=== PATIENT | female | born 1960 | race Caucasian/White ===

== ENCOUNTER 2016-04-06 11:17 | Emergency (ER) | payer BC, MEDICAID ==
[~2016-04-06] VITALS: Ht 160 cm; Wt 71.5 kg
[~2016-04-06 11:17] MED LIST: ALBU8.5H3; IPRA14.76; MTF1000T PO; XOP15INH IH; [UNRECOGNIZED DRUG - CODE] PO
[2016-04-06 11:29] VITALS: Ht 160 cm; Wt 71.5 kg
[2016-04-06] MEDS ORDERED: IBUPROFEN 800 MG TAB PO ONE (12:00)
[2016-04-06] MEDS ORDERED: DIAZEPAM 5 MG/ML SYG IM ONE (13:00)
--- NOTE | 2016-04-06 13:11 | RADRPT ---
PROCEDURE: Chest 2 views. CLINICAL INDICATION: Left chest pain. TECHNIQUE: PA and lateral views of the chest were obtained. COMPARISON: June 03, 2013 FINDINGS: The cardiomediastinal silhouette is within normal limits. No consolidations are identified. No pne umothorax is seen. Osseous structures appear intact. No gross destructive bony lesions are observ ed. IMPRESSION: No visualized active disease. If further characterization of the left ribs is needed a dedicated left rib series or CT is recommen ded. RPTAT: AA .Dallas Silva MD, MD Date Time Electronically viewed and signed by .Dallas Silva MD, on 04/06/2016 13:11 .P/
[2016-04-06] MEDS ORDERED: DIAZ-90 PO (13:21)
--- NOTE | 2016-04-06 13:21 | ERD ---
ER Documentation Chief Complaint Date/Time DATE: 04/06/16 TIME: 13:18 Chief Complaint injured chest wall moving furniture and now has pain taking a deep breath HPI This is a 55-year-old female who presents to the emergency room for evaluation of left sided chest pain. She states that she was moving furniture and felt a pop in her left chest. The patient states that she is having pain with deep inspiration and movement of her left arm. The patient came to the ER today for evaluation. ROS All systems reviewed and are negative except as per history of present illness. Medications Home Meds Reported Medications Metformin* (Glucophage*) 1,000 Mg Tablet, 1000 MG PO DAILY 06/04/13 Glyburide* (Glyburide*) 1.25 Mg Tablet, 5 MG PO BID 06/04/13 Levalbuterol* (Xopenex* HFA) 15 Gm Inha, 15 GM IH q 4 hrs prn 06/03/13 Albuterol/Ipratropium (Combivent) 14.7 Gm Inha 10/15/11 Albuterol Sulfate* (Proair HFA*) 8.5 Gm Hfa.aer.ad 10/15/11 Allergies Allergies: Coded Allergies: No Known Allergies (Verified Allergy, 06/03/13) PMhx/Soc History of Surgery: Yes (GALLBLADDER REMOVED 10 YEARS AGO) Anesthesia Reaction: No (NAUSEA) Hx Neurological Disorder: No Hx Respiratory Disorders: Yes (ASTHMA) Hx Cardiac Disorders: No Hx Psychiatric Problems: No Hx Miscellaneous Medical Probl: Yes (DM2, ASTHMA) Hx Alcohol Use: No Hx Substance Use: No Hx Tobacco Use: No Smoking Status: Never smoker Physical Exam Vitals Vital Signs Date Time Temp Pulse Resp B/P Pulse Ox O2 Delivery O2 Flow Rate FiO2 04/06/16 11:29 99.0 78 18 133/65 97 Physical Exam INITIAL VITAL SIGNS: Reviewed by me GENERAL: The patient is well developed and appropriate for usual state of health in no apparent distress HEENT: Pupils equal, round, and reactive to light. EOMI. There is no scleral icterus. NECK: C-spine is soft and supple, there is no meningismus. There is no cervical lymphadenopathy. LUNGS: Clear to auscultation bilaterally. There are no rales, wheezes or rhonchi. HEART: Regular rate and rhythm, no murmurs, clicks, rubs or gallops. ABDOMEN: Soft, non-tender, non-distended. There are bowel sounds in all four quadrants. No rebound or guarding. EXTREMITIES: There is no peripheral cyanosis or edema. No focal swelling or erythema. NEUROLOGICAL: The patient moves all four extremities with 5/5 strength. Cranial nerves II - XII are intact. Normal gait. Alert and oriented SKIN: There is no apparent rash or petechiae. Musculoskeletal: Left-sided chest wall tenderness to palpation, no paradoxical chest wall movement HEME/LYMPHATIC: There is no evidence of excessive bruising or lymphedema. PSYCHIATRIC: The patient does not appear anxious or depressed. Results 24 hrs Current Medications Medications (Trade) Dose Ordered Sig/Jose Elias Route PRN Reason Start Time Stop Time Status Last Admin Dose Admin Ibuprofen (Motrin) 800 mg ONCE ONCE PO 04/06/16 12:00 04/06/16 12:01 DC 04/06/16 11:59 Diazepam (Valium) 5 mg ONCE ONCE IM 04/06/16 13:00 04/06/16 13:01 DC Procedures/MDM EKG: Rate/Rhythm: [Normal Sinus Rhythm] QRS, ST, T-waves: [No changes consistent w/ acute ischemia] Impression: [No evidence of ischemia or arrhythmia] Chest X-ray 2V Interpreted by me: Soft Tissue: No acute abnormalities Bones: No acute abnormalities Mediastinum/Cardiac Silhouette/Lungs: [No acute abnormalities] This 55-year-old female presents to the ER for evaluation of left-sided chest pain. The patient did have tenderness to palpation on the left lateral chest wall, this occurred after moving heavy furniture. I feel that her symptoms are muscular in nature given the history and physical exam. EKG is nonischemic, chest x-ray does not show any signs of rib fractures. She is not hypoxic, no paradoxical chest wall movement. This patient will be discharged at this time with a prescription for Motrin, and Valium to take at nighttime only. Departure Diagnosis: Primary Impression: Chest wall muscle strain Condition: Stable MAJOR SANTIAGO DO Apr 06, 2016 13:21
[2016-04-06] MEDS ORDERED: IBUP800T25 PO (13:22)
[2016-04-06] MEDS ORDERED: GLIP5TAB13 PO (13:53)
[2016-04-06] MEDS ORDERED: ADV25050 INHALATION (13:54)
[2016-04-06] MEDS ORDERED: SITA100T8 PO (13:54)
[2016-04-06 14:18] VITALS: BP 118/69; PULSE 68; RESP 18; TEMP 98.1
== END 2016-04-06 14:19 | disposition home or self-care (01) ==
LOC: E/R 11:17
DX: S29.011A Strain of muscle and tendon of front wall of thorax, initial encounter (principal); J45.909 Unspecified asthma, uncomplicated; E11.9 Type 2 diabetes mellitus without complications; X50.1XXA Overexertion from prolonged static or awkward postures, initial encounter; Y92.9 Unspecified place or not applicable; Z79.84 Long term (current) use of oral hypoglycemic drugs
CPT/HCPCS: 71020; 96372; 99284; J3360; 93005

== ENCOUNTER 2017-04-22 17:09 | Inpatient (IN) | END 2017-04-27 14:30 | disposition home or self-care (01) | DRG 203 ==

== ENCOUNTER 2018-03-27 16:17 | Inpatient (IN) | payer BC ==
[~2018-03-27] VITALS: Ht 162.6 cm; Wt 63.3 kg
[~2018-03-27 16:17] MED LIST changes: +ADV25050 INHALATION; +ALBU2.5V3 NEB; -ALBU8.5H3; +ALBU8.5H8 INH; +GLIP5TAB13 PO; -IPRA14.76; +METF100010 PO; -MTF1000T PO; +PRED50TA PO; -XOP15INH IH; -[UNRECOGNIZED DRUG - CODE] PO
--- NOTE | 2018-03-27 16:41 | ERD ---
ER Documentation Chief Complaint Chief Complaint SOB X 1 month, Asthma exascerbation X 1 day HPI 57-year-old female with a history of diabetes mellitus type 2 and asthma, last admission was April 2017 but never intubated, presents to the ED complaining of several week history of shortness of breath which has been worsening over the last week and become severe since yesterday. Nonproductive cough but no hemoptysis. Denies chest pain or palpitations. No abdominal pain, nausea vomiting. No URI symptoms, rhinorrhea or odynophagia. No leg pain or swelling. No fevers or chills. ROS All systems reviewed and are negative except as per history of present illness. Medications Home Meds Active Scripts Prednisone* (Prednisone*) 10 Mg Tab, 10 MG PO DAILY for 11 Days, #26 TAB 40mg for 2 days then 30mg for 3 days then 20mg for 3 days then 10mg for 3 days then stop Prov:CAROLA NICHOLE MD 03/31/18 Guaifenesin (Guaifenesin) 600 Mg Tablet.sa, 600 MG PO BID PRN for COUGH for 7 Days, #14 TAB Prov:CAROLA NICHOLE MD 03/31/18 Azithromycin* (Azithromycin*) 250 Mg Tablet, 250 MG PO DAILY for 2 Days, #2 TAB Prov:CAROLA NICHOLE MD 03/31/18 Reported Medications Albuterol Sulfate* (Proair HFA*) 8.5 Gm Hfa.aer.ad, 2 PUFF INH Q4H PRN for WHEEZING AND SOB, #1 INHALER 03/27/18 Salmeterol Xinaf/Fluticasone* (Advair*) 250-50 Diskus Inhaler, 1 INH INHALATION BID, #1 INHALER 03/27/18 Glipizide* (Glipizide*) 10 Mg Tablet, 10 MG PO AC BREAKFAST DINNER, TAB 03/27/18 Metformin Hcl* (Metformin Hcl*) 1,000 Mg Tablet, 1000 MG PO WITH BREAKFAST DINNE, #60 TAB 03/27/18 Discontinued Reported Medications Albuterol Sulfate* (Proair HFA*) 8.5 Gm Hfa.aer.ad, 2 PUFF INH Q6H PRN for WHEEZING AND SOB, #1 INHALER 04/22/17 Salmeterol Xinaf/Fluticasone* (Advair*) 250-50 Diskus Inhaler, 1 INH INHALATION BID, #1 INHALER 04/22/17 Metformin Hcl* (Metformin Hcl*) 1,000 Mg Tablet, 1000 MG PO WITH BREAKFAST DINNE, #60 TAB 04/22/17 Glipizide* (Glipizide*) 5 Mg Tablet, 5 MG PO AC BREAKFAST DINNER, TAB 04/22/17 Discontinued Scripts Prednisone* (Prednisone*) 50 Mg Tablet, 50 MG PO DAILY for 4 Days, #4 TAB Prov:REZA TILLEY MD 04/26/17 Albuterol Sulfate* (Albuterol Sulfate* Neb) 0.083%-3 Ml Neb, 1.25 MG NEB Q3H PRN for WHEEZING AND SOB, #30 VIAL Prov:REZA TILLEY MD 04/26/17 Allergies Allergies: Coded Allergies: No Known Allergies (Verified Allergy, Unknown, 03/27/18) PMhx/Soc Viewed in chart. As per HPI. History of Surgery: Yes (Gallbladder removal) Anesthesia Reaction: No Hx Neurological Disorder: No Hx Respiratory Disorders: Yes (asthma, ) Hx Cardiac Disorders: No Hx Psychiatric Problems: No Hx Miscellaneous Medical Probl: Yes (Diabetes) Hx Alcohol Use: No Hx Substance Use: No Hx Tobacco Use: No FmHx No sudden or cancer. No family history relevant to presenting complaint. Physical Exam Vitals Temperature: 99.1. Pulse: 113. Respirations: 18. Blood pressure: 134/82. O2 saturation: 92% on room air. Physical Exam Const: No acute distress Head: Atraumatic Eyes: Normal Conjunctiva ENT: Normal External Ears, Nose and Mouth. Neck: Full range of motion. No meningismus. Resp: Clear to auscultation bilaterally Cardio: Regular rate and rhythm, no murmurs Abd: Soft, non tender, non distended. Normal bowel sounds Skin: No petechiae or rashes Back: No midline or flank tenderness Ext: No cyanosis, or edema Neur: Awake and alert Psych: Normal Mood and Affect Result Diagram: 03/31/18 0452 Results 24 hrs Laboratory Tests Test 03/27/18 16:50 03/27/18 21:08 White Blood Count 8.3 10^3/ul Red Blood Count 5.04 10^6/ul Hemoglobin 12.9 g/dl Hematocrit 39.1 % Mean Corpuscular Volume 77.6 fl Mean Corpuscular Hemoglobin 25.6 pg Mean Corpuscular Hemoglobin Concent 33.0 g/dl Red Cell Distribution Width 13.1 % Platelet Count 267 10^3/UL Mean Platelet Volume 9.8 fl Immature Granulocytes % 0.100 % Neutrophils % % Segmented Neutrophils % (Manual) 62 % Lymphocytes % % Lymphocytes % (Manual) 17 % Monocytes % % Monocytes % (Manual) 4 % Eosinophils % % Eosinophils % (Manual) 16 % Basophils % % Basophils % (Manual) 1 % Nucleated Red Blood Cells % 0.0 /100WBC Immature Granulocytes # 0.010 10^3/ul Neutrophils # 10^3/ul Lymphocytes (Manual) 1.4 10^3/ul Lymphocytes # 10^3/ul Monocytes # 10^3/ul Monocytes # (Manual) 0.3 10^3/ul Eosinophils # 10^3/ul Basophils # 10^3/ul Basophils # (Manual) 0.0 10^3/ul Nucleated Red Blood Cells # 10^3/ul Platelet Estimate NORMAL Poikilocytosis 1+ Anisocytosis 1+ Microcytosis 1+ Sodium Level 134 mmol/L Potassium Level 4.6 mmol/L Chloride Level 97 mmol/L Carbon Dioxide Level 22 mmol/L Anion Gap 15 Blood Urea Nitrogen 10 mg/dl Creatinine 0.72 mg/dl Est Glomerular Filtrat Rate mL/min > 60 mL/min Glucose Level 424 mg/dl Calcium Level 9.7 mg/dl Troponin I < 0.012 ng/ml Bedside Glucose 359 mg/dL Current Medications Medications Dose Sig/Jose Elias Start Time Status Last (Trade) Ordered Route PRN Stop Time Admin Dose Reason Admin Albuterol 15 mg ONCE STAT 03/27/18 DC 03/27/18 (Proventil INH 16:43 16:58 0.5% (Neb)) 03/27/18 16:45 Ipratropium 1 mg ONCE STAT 03/27/18 DC 03/27/18 Kountze INH 16:43 16:58 (Atrovent 03/27/18 0.02% 16:45 (Neb)) 125 mg ONCE STAT 03/27/18 DC 03/27/18 Methylprednis IV 16:43 16:58 olone Sodium 03/27/18 Succinate 16:45 (Solu-Medrol) Sodium 1,000 ml @ Q1H ONCE 03/27/18 DC 03/27/18 Chloride 1,000 mls/hr IV 18:30 18:44 03/27/18 19:29 Albuterol 15 mg ONCE STAT 03/27/18 DC 03/27/18 (Proventil INH 18:50 18:59 0.5% (Neb)) 03/27/18 18:52 Insulin 8 unit ONCE STAT 03/27/18 DC 03/27/18 Human IV 21:15 21:51 Regular 03/27/18 (Novolin-R) 21:17 Procedures/MDM DOCUMENTS REVIEWED: ED nurse, our ED, prior records EKG: Time: 17:37. Sinus tachycardia. Ventricular rate 102. Normal AK and QRS. No acute ST segment elevation or depression. No ectopy. My Interpretation IMAGING: Chest PA lateral. Cardiac silhouette is normal. The costophrenic angles are clear. No effusions or infiltrates. REEXAMINATION/REEVALUATION: Time: 1849. With decreased breath sounds shortness of breath and wheezing. Patient would like to try one more nebulized albuterol treatment prior to agreeing to admission. Time: 2057. Breath sounds diminished with expiratory wheezing. Still short of breath. CRITICAL CARE TIME: Due to the high probability of sudden clinically significant respiratory deterioration, this patient with acute asthma exacerbation with hypoxia required multiple, frequent reevaluations of vital signs and response to therapy. Additional critical care time was spent in reviewing prior medical records, interpretation of relevant clinical data including labs, x-ray, EKG and arranging for admission and ongoing care. TOTAL CRITICAL CARE TIME: 35 minutes not including other separately reportable procedures. MEDICAL DECISION MAKIN-year-old female presents to the ED complaining of 1 day history of increasing shortness of breath and wheezing. CBC unremarkable for leukocytosis or anemia. Chemistry reveals significant hyperglycemia and hyponatremia but no renal insufficiency or electrolyte abnormalities. EKG reveals sinus tachycardia but no ischemic changes or ectopy. Chest x-ray unremarkable for pneumonia, pneumothorax, effusion or infiltrates. Patient treated aggressively with nebulized albuterol, Atrovent and intravenous corticosteroids. Observed in the ED for over 4 hours but continues to be symptomatic with shortness of breath, significant bronchospasm with decreased breath sounds, expiratory wheezing and hypoxia. Diabetes mellitus out of control but no DKA or HHS likely exacerbated by steroids. Admit to [facility] for further evaluation and management. PATIENT CARE TRANSITIONED: Time: 2112Dr. Ghotra. Counseled patient regarding diagnosis, diagnostic results and plan for admission. Departure Diagnosis: Primary Impression: Shortness of breath Additional Impressions: Acute asthma exacerbation Asthma severity: severe Asthma persistence: persistent Qualified Codes: J45.51 - Severe persistent asthma with (acute) exacerbation Diabetes mellitus out of control Diabetes mellitus type: type 2 Glycemic state: with hyperglycemia Qualified Codes: E11.65 - Type 2 diabetes mellitus with hyperglycemia Condition: Serious THELMA WRIGHT MD Mar 27, 2018 16:41
[2018-03-27] MEDS ORDERED: ALBUTEROL 0.5% (NEB) 2.5 MG/0.5 ML AMP INH STA ×2 (16:43→18:50)
[2018-03-27] MEDS ORDERED: IPRATROPIUM (NEB) 0.5 MG/2.5 ML AMP INH STA (16:43)
[2018-03-27] MEDS ORDERED: METHYLPREDNISOLONE 125 MG INJ IV STA (16:43)
[2018-03-27] MEDS ORDERED: METF100010 PO (17:35)
[2018-03-27] MEDS ORDERED: GLIP10TA14 PO (17:35)
[2018-03-27] MEDS ORDERED: ADV25050 INHALATION (17:36)
[2018-03-27] MEDS ORDERED: ALBU8.5H8 INH (17:36)
[2018-03-27] MEDS ORDERED: SOD CHLORIDE 0.9% 1,000 ML IV ONE (18:30)
[2018-03-27] MEDS ORDERED: INSULIN REGULAR 10 ML INJ IV STA (21:15)
[2018-03-27] MEDS ORDERED: ONDANSETRON 4 MG INJ IV PRN ×2 (21:30→22:00)
[2018-03-27] MEDS ORDERED: ACETAMINOPHEN 325 MG TAB PO PRN ×2 (21:30→22:00)
[2018-03-27] MEDS ORDERED: NACL 0.9% 3 ML SYG IV SCH (22:00)
[2018-03-27] MEDS ORDERED: INSULIN GLARGINE [LANTus] (100 UNITS/ML) SYG SC ONE (22:00)
[2018-03-27] MEDS ORDERED: ALBUTEROL 0.083% (NEB) 2.5 MG/3 ML AMP HHN PRN (22:00)
--- NOTE | 2018-03-27 22:09 | HP ---
Date/Time of Note Date/Time of Note DATE: 03/27/18 TIME: 22:09 Assessment/Plan VTE Prophylaxis SCD applied (from Nsg): Yes Pharmacological prophylaxis: NA/contraindicated Pharm contraindication: low risk/ambulating Assessment/Plan Hospital Course This is a 57-year-old female being admitted to the [facility] floor for: #1 acute asthma exacerbation: Patient did receive a loading dose of Solu-Medrol in the ED at the current time we will continue Solu-Medrol 30 mg IV every 12, scheduled nebulizers, Protonix daily. Chest x-ray at the current time is clear. No indication for antibiotics at the current time. #2 diabetes mellitus: We will check a hemoglobin A1c. Will hold p.o. sulfonylurea and metformin, give the patient Lantus 10 units. Insulin sliding scale. Monitor blood sugars. Lipid panel, TSH. May need additional insulin administration with steroids if becomes hyperglycemic, will monitor. #3 DVT GI prophylaxis: SCDs, Protonix Further treatment strategy will be implemented as per the clinical course. Result Diagram: 03/27/18 1650 03/27/18 1650 Results 24hrs Laboratory Tests Test 03/27/18 16:50 03/27/18 21:08 03/27/18 21:55 White Blood Count 8.3 # Red Blood Count 5.04 Hemoglobin 12.9 Hematocrit 39.1 Mean Corpuscular Volume 77.6 L Mean Corpuscular Hemoglobin 25.6 L Mean Corpuscular 33.0 Hemoglobin Concent Red Cell Distribution Width 13.1 Platelet Count 267 Mean Platelet Volume 9.8 Immature Granulocytes % 0.100 Neutrophils % Segmented Neutrophils % (Manual) 62 Lymphocytes % Lymphocytes % (Manual) 17 Monocytes % Monocytes % (Manual) 4 Eosinophils % Eosinophils % (Manual) 16 H Basophils % Basophils % (Manual) 1 Nucleated Red Blood Cells % 0.0 Immature Granulocytes # 0.010 Neutrophils # Lymphocytes (Manual) 1.4 Lymphocytes # Monocytes # Monocytes # (Manual) 0.3 Eosinophils # Basophils # Basophils # (Manual) 0.0 Nucleated Red Blood Cells # Platelet Estimate NORMAL Poikilocytosis 1+ Anisocytosis 1+ Microcytosis 1+ Sodium Level 134 L Potassium Level 4.6 Chloride Level 97 Carbon Dioxide Level 22 Anion Gap 15 H Blood Urea Nitrogen 10 Creatinine 0.72 Est Glomerular Filtrat > 60 Rate mL/min Glucose Level 424 *H Calcium Level 9.7 Troponin I < 0.012 Bedside Glucose 359 H 355 H HPI/ROS Admit Date/Time Admit Date/Time Mar 27, 2018 at 21:17 Hx of Present Illness Chief complaint: Wheezing times 1 day, shortness of breath times 1 month 57-year-old female with a history of diabetes mellitus type 2 and asthma, last admission was April 2017 but never intubated, presents to the ED complaining of several week history of shortness of breath which has been worsening over the last week and become severe since yesterday. She reports that she was seen by her primary care doctor approximately 3 times and was given antibiotics for possible pneumonia as well as steroids and nebulization. Nonproductive cough but no hemoptysis. Denies chest pain or palpitations. No abdominal pain, nausea vomiting. No URI symptoms, rhinorrhea or odynophagia. No leg pain or swelling. No fevers or chills. Allergies: NKDA Medications: See YOLANDA SALINAS Const: As per HPI Eyes : No pain discharge or redness or change in visual acuity ENT: No pain, sore throat, congestion, congestion, dysphagia or discharge Respiratory: As per HPI Cardiovascular: No chest pain, palpitation, PND, or edema GI : no change in appetite, abdominal pain, nausea, vomiting, diarrhea, constipation, or change in the color his stool Genitourinary: No dysuria, hematuria, flank pain , discharge or CVA tenderness Musculoskeletal: No joint pain, back pain, neck pain, restricted range of motion in neck or joints Skin: No rash, bruising or hives Neuro: No headache, dizziness, syncope, seizure, focal weakness Endocrine: No polyuria, polydipsia, temperature intolerance Psych: No hallucination, depression, anxiety or suicidal ideation PMH/Family/Social Past Medical History Diabetes mellitus, asthma Medications Current Medications Ondansetron HCl (Zofran Inj) 4 mg BRIDGE ORDER PRN IV NAUSEA AND/OR VOMITING; Start 03/27/18 at 21:30; Stop 03/28/18 at 21:29 Acetaminophen (Tylenol Tab) 650 mg ER BRIDGE PRN PO MILD PAIN(1-3)OR ELEVATED TEMP; Start 03/27/18 at 21:30; Stop 03/28/18 at 21:29 IV Flush (NS 3 ml) 3 ml PER PROTOCOL IV ; Start 03/27/18 at 22:00; Status UNV Ondansetron HCl (Zofran Inj) 4 mg Q6H PRN IV NAUSEA AND/OR VOMITING; Start 03/27/18 at 22:00; Status UNV Acetaminophen (Tylenol Tab) 650 mg Q6H PRN PO PAIN LEVEL 1-3 OR FEVER; Start 03/27/18 at 22:00; Status UNV Heparin Sodium (Porcine) (Heparin (5000 Units/1ml)) 5,000 unit Q8 SC ; Start 03/27/18 at 22:00; Status UNV Albuterol (Proventil 0.083% (Neb)) 2.5 mg Q4H RESP THERAPY HHN ; Start 03/28/18 at 01:00; Status UNV Albuterol (Proventil 0.083% (Neb)) 1.25 mg Q2H RESP THERAPY PRN HHN SHORTNESS OF BREATH; Start 03/27/18 at 22:00; Status UNV Prednisone (Prednisone) 40 mg DAILY PO ; Start 03/28/18 at 09:00; Status UNV Insulin Glargine (Lantus) 10 units ONCE ONCE SC ; Start 03/27/18 at 22:00; Stop 03/27/18 at 22:01; Status UNV Miscellaneous Information (* Miscellaneous Pharmacy Order) Discontinue current oral sulfonylur... ONCE ONCE XX ; Start 03/27/18 at 22:00; Stop 03/27/18 at 22:01; Status UNV Diagnostic Test (Pha) (Accu-Chek) 1 ea 02 XX ; Start 03/28/18 at 02:00; Status UNV Miscellaneous Information (* Miscellaneous Pharmacy Order) HYPOGLYCEMIA PROTOCOL w... ONCE ONCE XX ; Start 03/27/18 at 22:00; Stop 03/27/18 at 22:01; Status UNV Insulin Aspart (Novolog Insulin Pen) NOVOLOG *MILD* ALGORITHM WITH MEALS BEDTIME SC ; Start 03/28/18 at 08:00; Status UNV Miscellaneous Information (* Miscellaneous Pharmacy Order) Discontinue all previ... ONCE ONCE XX ; Start 03/27/18 at 22:00; Stop 03/27/18 at 22:01; Status UNV Miscellaneous Information 1 inh BID INHALATION ; Start 03/28/18 at 09:00; Status UNV Coded Allergies: No Known Allergies (Verified Allergy, Unknown, 03/27/18) Past Surgical History Past Surgical Hx: cholecystectomy Family History Significant Family History: no pertinent family hx Social History Alcohol Use: none Smoking Status: Never smoker Drug Use: none Exam/Review of Systems Vital Signs Vitals Vital Signs Date Temp Pulse Resp B/P (MAP) Pulse Ox O2 O2 Flow FiO2 Time Delivery Rate 03/27/18 111 19 122/76 97 Nasal 21:52 (91) Cannula 03/27/18 21 18:55 03/27/18 99.1 16:25 Exam Exam General: Patient is a pleasant female currently lying in bed in no acute distress HEENT: Atraumatic, normocephalic. The pupils are equal, round and reactive. Extraocular motor are intact Neck: Supple with full range of motion. No rigidity or meningismus Chest: Nontender Lungs: Inspiratory and expiratory wheezing on examination, nonlabored breathing, coarse breath sounds bilaterally Heart: Sinus tachycardia Abdomen: Soft , nontender, nondistended , bowel sounds are present. No guarding no rebound tenderness , No masses or organomegaly. No costovertebral temporal angle mass Extremities: Normal to inspection, no edema no cyanosis Neurologic: Normal mental status, speech normal, cranial nerves II through XII are intact, motor and sensory are intact, no focal weakness Additional Comments PROCEDURE: XR Chest. CLINICAL INDICATION: chest pain TECHNIQUE: Single frontal view of the chest was obtained COMPARISON: 04/06/16 FINDINGS: The heart and mediastinum are within normal limits. The lungs are clear. There is no pleural effusion or pneumothorax. RPTAT: AA IMPRESSION: No acute disease. .Anthony Borrego MD, Date Time Electronically viewed and signed by .Anthony Borrego MD, MD on 03/27/2018 17:05 .S/ CC: THELMA WRIGHT MD [id number] BERNARDO MCWILLIAMS Mar 27, 2018 22:09
[2018-03-27 22:14] VITALS: BP 131/63; PULSE 116; RESP 18
[2018-03-27 22:30] VITALS: Ht 162.6 cm; Wt 63.3 kg
[2018-03-27] MEDS: HEPARIN 5,000 UNIT/1 ML VIAL SC SCH (23:10)
[2018-03-28 02:00] VITALS: BP 135/67; PULSE 108; RESP 18
[2018-03-28] MEDS: ACCU-CHEK XX SCH (02:00)
[2018-03-28] MEDS: ALBUTEROL 0.083% (NEB) 2.5 MG/3 ML AMP HHN SCH ×2 (02:18→05:31)
[2018-03-28] MEDS ORDERED: INSULIN ASPART [NOVOLOG] 3 ML PEN SC ONE (02:30)
[2018-03-28] MEDS: HEPARIN 5,000 UNIT/1 ML VIAL SC SCH (05:46)
--- NOTE | 2018-03-28 06:34 | NUR ---
Pt alert and oriented. No complaint of pain. Pt arrived on the unit on 2L of O2. BS checked. BS was [address] Ghotra. BS was rechecked and it was 343. Dr Ghotra was notified, received orders. BS rechecked and it was 257. All needs attended to. Admission questions completed, skin assessed and pt oriented to room. Bed in lowest position w/ call light within reach
[2018-03-28] MEDS: INSULIN ASPART [NOVOLOG] 3 ML PEN SC SCH ×4 (07:56→20:58)
[2018-03-28 08:33] VITALS: BP 122/61; PULSE 84; RESP 17
--- NOTE | 2018-03-28 08:43 | PN ---
Date/Time of Note Date/Time of Note DATE: 03/28/18 TIME: 08:43 Assessment/Plan VTE Prophylaxis SCD applied (from Nsg): Yes Pharmacological prophylaxis: LMWH Lines/Catheters IV Catheter Type (from Nrsg): Saline Lock Assessment/Plan Assessment/Plan 1. Acute asthma exacerbation - Will continue on Solumedrol and start on short course of antibiotics given has been having these symptoms for over 1 month - Nebs scheduled as well as PRN - CXR negative for acute issues 2. DM - A1c noted - Dm education consultation placed given uncontrolled - Continue on Lantus and will adjust as needed - Will add Novolog 70/30 with solumedrol for extra coverage - will hold PO home medications 3. Disposition - Monitor for improvement in respiratory status. When improving will transition to PO and d/c home Result Diagram: 03/28/18 0539 03/28/18 0539 Results 24hrs Laboratory Tests Test 03/27/18 16:50 03/27/18 21:08 03/27/18 21:55 03/27/18 22:55 White Blood 8.3 # Count Red Blood Count 5.04 Hemoglobin 12.9 Hematocrit 39.1 Mean Corpuscular 77.6 L Volume Mean Corpuscular 25.6 L Hemoglobin Mean Corpuscular 33.0 Hemoglobin Starr nt Red Cell 13.1 Distribution Width Platelet Count 267 Mean Platelet 9.8 Volume Immature 0.100 Granulocytes % Neutrophils % Segmented 62 Neutrophils % (Manual) Lymphocytes % Lymphocytes % 17 (Manual) Monocytes % Monocytes % 4 (Manual) Eosinophils % Eosinophils % 16 H (Manual) Basophils % Basophils % 1 (Manual) Nucleated Red 0.0 Blood Cells % Immature 0.010 Granulocytes # Neutrophils # Lymphocytes 1.4 (Manual) Lymphocytes # Monocytes # Monocytes # 0.3 (Manual) Eosinophils # Basophils # Basophils # 0.0 (Manual) Nucleated Red Blood Cells # Platelet NORMAL Estimate Poikilocytosis 1+ Anisocytosis 1+ Microcytosis 1+ Sodium Level 134 L Potassium Level 4.6 Chloride Level 97 Carbon Dioxide 22 Level Anion Gap 15 H Blood Urea 10 Nitrogen Creatinine 0.72 Est Glomerular > 60 Filtrat Rate mL/min Glucose Level 424 *H Calcium Level 9.7 Troponin I < 0.012 Bedside Glucose 359 H 355 H 363 H Test 03/28/18 02:18 03/28/18 05:39 03/28/18 05:43 03/28/18 07:52 Bedside Glucose 343 H 257 H 224 H White Blood 9.5 Count Red Blood Count 4.72 Hemoglobin 12.0 Hematocrit 36.8 L Mean Corpuscular 78.0 L Volume Mean Corpuscular 25.4 L Hemoglobin Mean Corpuscular 32.6 Hemoglobin Starr nt Red Cell 13.1 Distribution Width Platelet Count 263 Mean Platelet 10.1 Volume Immature 0.300 Granulocytes % Neutrophils % 84.8 H Lymphocytes % 10.9 L Monocytes % 3.9 Eosinophils % 0.1 Basophils % 0.0 Nucleated Red 0.0 Blood Cells % Immature 0.030 Granulocytes # Neutrophils # 8.1 H Lymphocytes # 1.0 Monocytes # 0.4 Eosinophils # 0.0 Basophils # 0.0 Nucleated Red 0.0 Blood Cells # Sodium Level 140 Potassium Level 4.4 Chloride Level 103 Carbon Dioxide 22 Level Anion Gap 15 H Blood Urea 11 Nitrogen Creatinine 0.45 Est Glomerular > 60 Filtrat Rate mL/min Glucose Level 255 #H Hemoglobin A1c 10.7 H Calcium Level 9.9 Magnesium Level 1.6 L Total Bilirubin 0.0 L Direct Bilirubin 0.00 Indirect 0.0 Bilirubin Aspartate Amino 16 Transf (AST/SGOT ) Alanine 17 Aminotransferase (ALT/SGPT) Alkaline 66 Phosphatase Total Protein 6.1 Albumin 3.9 Globulin 2.20 Albumin/Globulin 1.77 Ratio Triglycerides 67 Level Cholesterol 225 H Level LDL Cholesterol, 146 Calculated HDL Cholesterol 66 Cholesterol/HDL 3.4 Ratio Thyroid 0.095 L Stimulating Hormone (TSH) Subjective 24 Hr Interval Summary Free Text/Dictation Patient states she's feeling the same since admission with shortness of breath. States she's been experiencing her symptoms for the past month. Admits to being sick with the flu with productive cough for the past week. Exam/Review of Systems Vital Signs Vitals Vital Signs Date Temp Pulse Resp B/P (MAP) Pulse Ox O2 O2 Flow FiO2 Time Delivery Rate 03/28/18 98.5 84 17 122/61 95 Nasal 2.0 08:33 (81) Cannula 03/27/18 21 18:55 Intake and Output 03/27/18 03/27/18 03/28/18 1515:00 23:00 07:00 IntakeIntake Total 1000 ml BalanceBalance 1000 ml Exam General: no acute distress. awake and answering questions appropriately Neck: Supple Chest: Nontender Lungs: Expiratory wheezing. diminished air entry Heart: Regular rhythm, sinus tachycardia, no murmurs appreciated Abdomen: Soft , nontender, nondistended , bowel sounds are present. No guarding no rebound tenderness Extremities: Normal to inspection, no edema no cyanosis Medications Medications Current Medications IV Flush (NS 3 ml) 3 ml PER PROTOCOL IV ; Start 03/27/18 at 22:00 Ondansetron HCl (Zofran Inj) 4 mg Q6H PRN IV NAUSEA AND/OR VOMITING; Start 03/27/18 at 22:00 Acetaminophen (Tylenol Tab) 650 mg Q6H PRN PO PAIN LEVEL 1-3 OR FEVER; Start 03/27/18 at 22:00 Heparin Sodium (Porcine) (Heparin (5000 Units/1ml)) 5,000 unit Q8 SC Last administered on 03/28/18at 05:46; Admin Dose 5,000 UNIT; Start 03/27/18 at 22:00 Albuterol (Proventil 0.083% (Neb)) 2.5 mg Q4H RESP THERAPY HHN Last administered on 03/28/18at 05:31; Admin Dose 2.5 MG; Start 03/28/18 at 01:00 Albuterol (Proventil 0.083% (Neb)) 1.25 mg Q2H RESP THERAPY PRN HHN SHORTNESS OF BREATH; Start 03/27/18 at 22:00 Diagnostic Test (Pha) (Accu-Chek) 1 ea 02 XX ; Start 03/28/18 at 02:00 Insulin Aspart (Novolog Insulin Pen) NOVOLOG *MILD* ALGORITHM WITH MEALS BEDTIME SC Last administered on 03/28/18at 07:56; Admin Dose 3 UNIT; Start 03/28/18 at 08:00 Fluticasone/ Vilanterol (Breo Ellipta 100-25 Mcg Inh) 1 inh DAILY INH ; Start 03/28/18 at 09:00 Methylprednisolone Sodium Succinate (Solu-Medrol) 30 mg Q12 IV ; Start 03/28/18 at 09:00 CAROLA NICHOLE MD Mar 28, 2018 08:43
[2018-03-28] MEDS: FLUTICASONE/VILANTEROL 100-25 INH SCH (08:56)
[2018-03-28] MEDS: METHYLPREDNISOLONE 40 MG INJ IV SCH ×2 (08:56→20:55)
[2018-03-28] MEDS ORDERED: LEVALBUTEROL (NEB) 0.63 MG/3 ML AMP HHN PRN (09:00)
[2018-03-28] MEDS: LEVALBUTEROL (NEB) 0.63 MG/3 ML AMP HHN SCH ×4 (09:00→20:10)
[2018-03-28] MEDS ORDERED: DEXTROSE 50% 50 ML SYRINGE IV PRN ×2 (09:00)
[2018-03-28] MEDS ORDERED: GLUCOSE GEL 15 GRAM TUBE BUCCAL PRN (09:00)
[2018-03-28] MEDS ORDERED: NON-FORMULARY/PATIENT OWN MED (Salmeterol Xinaf/Fluticasone* (Advair*) 1 INH) INHALATION SCH (09:00)
[2018-03-28] MEDS ORDERED: GLUCOSE GEL 15 GRAM TUBE PO PRN ×2 (09:00)
[2018-03-28] MEDS ORDERED: predniSONE 20 MG TAB PO SCH (09:00)
[2018-03-28] MEDS ORDERED: GLUCAGON 1 MG INJ IM PRN (09:00)
[2018-03-28] MEDS: INSULIN ASP PROT/ASPART (70/30) PEN SC SCH ×2 (11:11→20:56)
[2018-03-28] MEDS: ENOXAPARIN 40 MG/0.4 ML SYG SC SCH (11:12)
[2018-03-28] MEDS ORDERED: AZITHROMYCIN 500MG/NS (PMX) 250 ML IVPB ONE (12:30)
[2018-03-28 14:00] VITALS: BP 116/69; PULSE 92; RESP 17
--- NOTE | 2018-03-28 17:58 | NUR ---
RN NOTES Patient remained stable, not in any apparent distress noted. Still on 2l of O2 as ordered. Seen by Dr Bui with orders noted as follows, Heparin was discontinued and was changed to Lovenox 40 mg SQ daily, MD also ordered Diabetes consult for A1C of 10.7. Azithromycin 500 mg IV was also given as ordered and will be starting with Azithromycin 250 mg tablet daily. Hyperglycemia still noted, Dr Bui was made aware with new insulin ordered. kept safe and comfortable. Needs attended. Will continue to monitor.
[2018-03-28 19:30] VITALS: BP 139/70; PULSE 80; RESP 18
[2018-03-29 01:53] VITALS: BP 126/63; PULSE 71; RESP 17
[2018-03-29] MEDS: ACCU-CHEK XX SCH (02:00)
--- NOTE | 2018-03-29 06:24 | NUR ---
Pt alert and oriented. Denies pain. No sign of distress noted. Pt Blood sugar checked, insulin administered per orders. MD notified of elevated BS. All needs attended to. Call light within reach
[2018-03-29 07:45] VITALS: BP 119/69; PULSE 75; RESP 17
[2018-03-29] MEDS: INSULIN ASPART [NOVOLOG] 3 ML PEN SC SCH ×4 (08:10→20:20)
--- NOTE | 2018-03-29 08:28 | PN ---
Date/Time of Note Date/Time of Note DATE: 03/29/18 TIME: 08:28 Assessment/Plan VTE Prophylaxis Risk score (from Nsg)>0 risk: 2 SCD applied (from Nsg): Yes Pharmacological prophylaxis: LMWH Lines/Catheters IV Catheter Type (from Nrsg): Saline Lock Assessment/Plan Assessment/Plan 1. Acute asthma exacerbation- stable - Still with expiratory wheezing. Will continue on IV steroids and antibiotics - Nebs on board - CXR negative for acute issues 2. DM - A1c noted - Dm education consultation placed given uncontrolled - Continue on Lantus and will adjust as needed - Novolog 70/30 to be given with solumedrol - will hold PO home medications 3. Disposition - Continue current treatment and monitor for improvement in respiratory status. Result Diagram: 03/28/18 0539 03/28/18 0539 Results 24hrs Laboratory Tests Test 03/28/18 11:09 03/28/18 12:11 03/28/18 17:19 03/28/18 20:54 Bedside Glucose 186 167 281 H 206 Test 03/29/18 02:20 03/29/18 08:07 Bedside Glucose 246 H 206 Subjective 24 Hr Interval Summary Free Text/Dictation Patient still with shortness of breath and expiratory wheezing. Denies any new issues. No acute overnight events. Exam/Review of Systems Vital Signs Vitals Vital Signs Date Temp Pulse Resp B/P (MAP) Pulse Ox O2 O2 Flow FiO2 Time Delivery Rate 03/29/18 98.1 71 17 126/63 94 01:53 (84) 03/28/18 Nasal 2.0 22:31 Cannula 03/27/18 21 18:55 Intake and Output 03/28/18 03/28/18 03/29/18 1515:00 23:00 07:00 IntakeIntake Total 600 ml 630 ml 1600 ml BalanceBalance 600 ml 630 ml 1600 ml Exam General: no acute distress. awake and answering questions appropriately. no acut e distress Neck: Supple Lungs: Expiratory wheezing. diminished air entry but no crackles appreciated Heart: S1, S2, Regular rate and rhythm, no murmurs appreciated Abdomen: Soft , nontender, nondistended , bowel sounds are present. No guarding no rebound tenderness Extremities: Normal to inspection, no edema no cyanosis Medications Medications Current Medications IV Flush (NS 3 ml) 3 ml PER PROTOCOL IV ; Start 03/27/18 at 22:00 Ondansetron HCl (Zofran Inj) 4 mg Q6H PRN IV NAUSEA AND/OR VOMITING; Start 03/27/18 at 22:00 Acetaminophen (Tylenol Tab) 650 mg Q6H PRN PO PAIN LEVEL 1-3 OR FEVER Last administered on 03/28/18at 11:07; Admin Dose 650 MG; Start 03/27/18 at 22:00 Diagnostic Test (Pha) (Accu-Chek) 1 ea 02 XX ; Start 03/28/18 at 02:00 Insulin Aspart (Novolog Insulin Pen) NOVOLOG *MILD* ALGORITHM WITH MEALS BEDTIME SC Last administered on 03/29/18at 08:10; Admin Dose 2 UNIT; Start 03/28/18 at 08:00 Fluticasone/ Vilanterol (Breo Ellipta 100-25 Mcg Inh) 1 inh DAILY INH Last administered on 03/28/18at 08:56; Admin Dose 1 INH; Start 03/28/18 at 09:00 Methylprednisolone Sodium Succinate (Solu-Medrol) 30 mg Q12 IV Last administered on 03/28/18at 20:55; Admin Dose 30 MG; Start 03/28/18 at 09:00 Insulin Aspart Prota 70%/Aspart 30% (Novolog Mix (70/ 30) Flexpen) 10 unit BID SC Last administered on 03/28/18at 20:56; Admin Dose 10 UNIT; Start 03/28/18 at 09:00 Levalbuterol (Xopenex Neb) 0.63 mg Q2H RESP THERAPY PRN HHN shortness of breath; Start 03/28/18 at 09:00 Enoxaparin Sodium (Lovenox) 40 mg DAILY SC Last administered on 03/28/18at 11:12; Admin Dose 40 MG; Start 03/28/18 at 09:00 Miscellaneous Information 1 ea NOTE XX ; Start 03/28/18 at 09:00 Glucose (Glutose) 15 gm Q15M PRN PO DECREASED GLUCOSE; Start 03/28/18 at 09:00 Glucose (Glutose) 22.5 gm Q15M PRN PO DECREASED GLUCOSE; Start 03/28/18 at 09:00 Dextrose (D50w Syringe) 25 ml Q15M PRN IV DECREASED GLUCOSE; Start 03/28/18 at 09:00 Dextrose (D50w Syringe) 50 ml Q15M PRN IV DECREASED GLUCOSE; Start 03/28/18 at 09:00 Glucagon (Glucagen) 1 mg Q15M PRN IM DECREASED GLUCOSE; Start 03/28/18 at 09:00 Glucose (Glutose) 15 gm Q15M PRN BUCCAL DECREASED GLUCOSE; Start 03/28/18 at 09:00 Azithromycin (Zithromax) 250 mg DAILY PO ; Start 03/29/18 at 09:00; Stop 04/02/18 at 08:59 Levalbuterol (Xopenex Neb) 0.63 mg Q4HWA RESP THERAPY HHN ; Start 03/29/18 at 09:00 CAROLA NICHOLE MD Mar 29, 2018 08:28
[2018-03-29] MEDS: LEVALBUTEROL (NEB) 0.63 MG/3 ML AMP HHN SCH ×4 (08:35→21:00)
[2018-03-29] MEDS: METHYLPREDNISOLONE 40 MG INJ IV SCH ×2 (09:09→20:21)
[2018-03-29] MEDS: INSULIN ASP PROT/ASPART (70/30) PEN SC SCH ×2 (09:09→20:19)
[2018-03-29] MEDS: ENOXAPARIN 40 MG/0.4 ML SYG SC SCH (09:09)
[2018-03-29] MEDS: FLUTICASONE/VILANTEROL 100-25 INH SCH (09:10)
[2018-03-29] MEDS: AZITHROMYCIN 250 MG TAB PO SCH (09:10)
[2018-03-29] MEDS ORDERED: POLYETHYLENE GLYCOL 17 GM PACKET PO PRN (12:00)
[2018-03-29] MEDS: GUAIFENESIN LA 600 MG TABSR PO SCH ×2 (13:49→20:21)
[2018-03-29 14:00] VITALS: BP 128/71; PULSE 67; RESP 18
--- NOTE | 2018-03-29 17:56 | NUR ---
NURSE NOTES: Patient alert and oriented x 4, able to make needs known remained stable throughout the shift with no acute changes noted. No changes in LOC or mentation. IV patent and intact. All due medications were given, tolerated well. On oxygen via nasal cannula, no SOB or distress noted. Breathing treatment provided by RT. performed blood sugar checks as scheduled. Administered insulin as ordered. Safety precautions observed, hourly rounding done, bed alarm and bed brakes on for safety. Call light and telephone within reach at all times Encouraged to use call light or telephone whenever assistance is needed. Will continue to monitor. Will endorse accordingly to next shift for continuity of care.
[2018-03-29] MEDS ORDERED: INSULIN GLARGINE [LANTus] (100 UNITS/ML) SYG SC SCH (20:00)
[2018-03-29 20:10] VITALS: BP 126/69; PULSE 72; RESP 18
[2018-03-29] MEDS: INSULIN GLARGINE [LANTus] (100 UNITS/ML) SYG SC SCH (20:18)
[2018-03-30 02:00] VITALS: BP 125/60; PULSE 64; RESP 18
[2018-03-30] MEDS: ACCU-CHEK XX SCH (02:00)
--- NOTE | 2018-03-30 02:45 | NUR ---
Pt's BG 273. made aware. Ordered 3 units Novalog. Will continue to monitor.
[2018-03-30] MEDS ORDERED: INSULIN ASPART [NOVOLOG] 3 ML PEN SC ONE (03:00)
--- NOTE | 2018-03-30 05:47 | NUR ---
No acute changes during shift. Pt safe and free from injury. Pt A&Ox4 and able to make needs known. All needs anticipated and attended to. Pt slept through the night. Encouraged pt to reposition Q2H. Pt denies any pain. BG monitored and controlled through shift. No signs of discomfort or distress. No SOB. Pt currently sleeping comfortably in bed. Bed alarm on, call light within reach. Will continue to monitor.
[2018-03-30] MEDS: INSULIN ASPART [NOVOLOG] 3 ML PEN SC SCH ×5 (07:52→20:37)
[2018-03-30] MEDS: METHYLPREDNISOLONE 40 MG INJ IV SCH ×2 (08:14→20:35)
[2018-03-30] MEDS: AZITHROMYCIN 250 MG TAB PO SCH (08:15)
[2018-03-30] MEDS: GUAIFENESIN LA 600 MG TABSR PO SCH ×2 (08:15→20:37)
[2018-03-30] MEDS: INSULIN ASP PROT/ASPART (70/30) PEN SC SCH ×2 (08:15→20:35)
[2018-03-30] MEDS: FLUTICASONE/VILANTEROL 100-25 INH SCH (08:16)
[2018-03-30] MEDS: ENOXAPARIN 40 MG/0.4 ML SYG SC SCH (08:16)
[2018-03-30] MEDS: LEVALBUTEROL (NEB) 0.63 MG/3 ML AMP HHN SCH ×4 (08:21→20:14)
--- NOTE | 2018-03-30 08:41 | PN ---
Date/Time of Note Date/Time of Note DATE: 03/30/18 TIME: 08:41 Assessment/Plan VTE Prophylaxis Risk score (from Nsg)>0 risk: 2 SCD applied (from Nsg): Yes Pharmacological prophylaxis: LMWH Lines/Catheters IV Catheter Type (from Nrsg): Saline Lock Assessment/Plan Assessment/Plan 1. Acute asthma exacerbation- stable - Will continue IV steroids today and transition to PO in the am. If continues to improve will d/c in the am - Nebs on board - CXR negative for acute issues - Mucinex for productive cough 2. DM - A1c noted - Dm education consultation appreciated - Continue on Lantus and will add Novolog 4 units with meals - Novolog 70/30 to be given with solumedrol - will hold PO home medications until discharge 3. Disposition - Will transition to PO steroid tomorrow and if continues to improve, will d/c home Result Diagram: 03/28/18 0539 03/28/18 0539 Results 24hrs Laboratory Tests Test 03/29/18 09:06 03/29/18 12:07 03/29/18 16:51 03/29/18 20:15 Bedside Glucose 354 H 279 H 306 H 302 H Test 03/30/18 02:31 03/30/18 07:51 Bedside Glucose 279 H 170 Subjective 24 Hr Interval Summary Free Text/Dictation Patient states she's feeling better but still with some shortness of breath. Asking if she can take prednisone chronically and discussed side effects. No acute overnight events. Exam/Review of Systems Vital Signs Vitals Vital Signs Date Temp Pulse Resp B/P (MAP) Pulse Ox O2 O2 Flow FiO2 Time Delivery Rate 03/30/18 64 18 95 Nasal 2.0 08:22 Cannula 03/30/18 97.6 125/60 02:00 (81) 03/27/18 21 18:55 Intake and Output 03/29/18 03/29/18 03/30/18 1515:00 23:00 07:00 IntakeIntake Total 240 ml 800 ml BalanceBalance 240 ml 800 ml Exam General: no acute distress. awake and answering questions appropriately. no acute distress Neck: Supple Lungs: Mild expiratory wheezing. diminished air entry but no crackles appreciated Heart: S1, S2, Regular rate and rhythm, no murmurs appreciated Abdomen: Soft , nontender, nondistended , bowel sounds are present. No guarding no rebound tenderness Extremities: Normal to inspection, no edema no cyanosis Skin: no new rash or lesion appreciated Medications Medications Current Medications IV Flush (NS 3 ml) 3 ml PER PROTOCOL IV ; Start 03/27/18 at 22:00 Ondansetron HCl (Zofran Inj) 4 mg Q6H PRN IV NAUSEA AND/OR VOMITING; Start 03/27/18 at 22:00 Acetaminophen (Tylenol Tab) 650 mg Q6H PRN PO PAIN LEVEL 1-3 OR FEVER Last administered on 03/28/18at 11:07; Admin Dose 650 MG; Start 03/27/18 at 22:00 Diagnostic Test (Pha) (Accu-Chek) 1 ea 02 XX ; Start 03/28/18 at 02:00 Insulin Aspart (Novolog Insulin Pen) NOVOLOG *MILD* ALGORITHM WITH MEALS BEDTIME SC Last administered on 03/30/18 07:52; Admin Dose 1 UNIT; Start 03/28/18 at 08:00 Fluticasone/ Vilanterol (Breo Ellipta 100-25 Mcg Inh) 1 inh DAILY INH Last administered on 03/30/18at 08:16; Admin Dose 1 INH; Start 03/28/18 at 09:00 Methylprednisolone Sodium Succinate (Solu-Medrol) 30 mg Q12 IV Last administered on 03/30/18at 08:14; Admin Dose 30 MG; Start 03/28/18 at 09:00 Insulin Aspart Prota 70%/Aspart 30% (Novolog Mix (70/ 30) Flexpen) 10 unit BID SC Last administered on 03/30/18at 08:15; Admin Dose 10 UNIT; Start 03/28/18 at 09:00 Levalbuterol (Xopenex Neb) 0.63 mg Q2H RESP THERAPY PRN HHN shortness of breath; Start 03/28/18 at 09:00 Enoxaparin Sodium (Lovenox) 40 mg DAILY SC Last administered on 03/30/18at 08:16; Admin Dose 40 MG; Start 03/28/18 at 09:00 Miscellaneous Information 1 ea NOTE XX ; Start 03/28/18 at 09:00 Glucose (Glutose) 15 gm Q15M PRN PO DECREASED GLUCOSE; Start 03/28/18 at 09:00 Glucose (Glutose) 22.5 gm Q15M PRN PO DECREASED GLUCOSE; Start 03/28/18 at 09:00 Dextrose (D50w Syringe) 25 ml Q15M PRN IV DECREASED GLUCOSE; Start 03/28/18 at 09:00 Dextrose (D50w Syringe) 50 ml Q15M PRN IV DECREASED GLUCOSE; Start 03/28/18 at 09:00 Glucagon (Glucagen) 1 mg Q15M PRN IM DECREASED GLUCOSE; Start 03/28/18 at 09:00 Glucose (Glutose) 15 gm Q15M PRN BUCCAL DECREASED GLUCOSE; Start 03/28/18 at 09:00 Azithromycin (Zithromax) 250 mg DAILY PO Last administered on 03/30/18at 08:15; Admin Dose 250 MG; Start 03/29/18 at 09:00; Stop 04/02/18 at 08:59 Levalbuterol (Xopenex Neb) 0.63 mg Q4HWA RESP THERAPY HHN Last administered on 03/30/18at 08:21; Admin Dose 0.63 MG; Start 03/29/18 at 09:00 Insulin Glargine (Lantus) 14 units DAILY@2000 SC Last administered on 03/29at 20:18; Admin Dose 14 UNITS; Start 03/29/18 at 20:00 Guaifenesin (Mucinex) 600 mg BID PO Last administered on 03/30/18at 08:15; Admin Dose 600 MG; Start 03/29/18 at 12:30 Polyethylene Glycol (Miralax) 17 gm DAILY PRN PO CONSTIPATION; Start 03/29/18 at 12:00 CAROLA NICHOLE MD Mar 30, 2018 08:41
--- NOTE | 2018-03-30 08:42 | NUR ---
Glycemic Management: R: Appreciate the adjustments in insulin regimen. Consider initiating a premeal bolus of NovoLog 4 units. Will attempt to follow up with pt at bedside.
[2018-03-30 08:44] VITALS: BP 140/74; PULSE 52; RESP 18
[2018-03-30 14:59] VITALS: BP 118/69; PULSE 75; RESP 18
--- NOTE | 2018-03-30 15:07 | NUR ---
RN Notes: Pt remains alert and oriented. Denies pain. No sign of acute distress noted. Pt Blood sugar checked, insulin administered per orders. MD aware regarding elevated blood sugar diabetic nurse was evaluated pt and DR. Bui aware regarding recommendation and received order, pt still on Prednisone. Able to walk in the hallway with steady gait and with standby assist, rechecked SPO2 92% RA, breathing even and unlabored. Hourly rounding done. All needs attended to. Call light within reach. Will continue to monitor until the end of the shift. Addendum: 03/30/18 at 1905 by LORETA GONSALES RN No significant events during this shift will endorse for continuity of care
[2018-03-30] MEDS: INSULIN GLARGINE [LANTus] (100 UNITS/ML) SYG SC SCH (20:34)
[2018-03-30 22:28] VITALS: BP 108/64; PULSE 74; RESP 20
[2018-03-31 02:00] VITALS: BP 113/67; PULSE 65; RESP 19
[2018-03-31 07:30] VITALS: BP 126/71; PULSE 64; RESP 16
[2018-03-31] MEDS: INSULIN ASPART [NOVOLOG] 3 ML PEN SC SCH ×4 (08:00→11:57)
[2018-03-31] MEDS: ENOXAPARIN 40 MG/0.4 ML SYG SC SCH (08:01)
[2018-03-31] MEDS: GUAIFENESIN LA 600 MG TABSR PO SCH (08:02)
[2018-03-31] MEDS: FLUTICASONE/VILANTEROL 100-25 INH SCH (08:02)
[2018-03-31] MEDS: AZITHROMYCIN 250 MG TAB PO SCH (08:02)
[2018-03-31] MEDS: LEVALBUTEROL (NEB) 0.63 MG/3 ML AMP HHN SCH ×2 (08:09→12:59)
[2018-03-31] MEDS ORDERED: predniSONE 20 MG TAB PO SCH (09:00)
--- NOTE | 2018-03-31 10:18 | PN ---
Date/Time of Note Date/Time of Note DATE: 03/31/18 TIME: 10:17 Assessment/Plan VTE Prophylaxis Risk score (from Ns)>0 risk: 2 SCD applied (from Ns): Yes Pharmacological prophylaxis: LMWH Lines/Catheters IV Catheter Type (from Nrs): Saline Lock Assessment/Plan Assessment/Plan 1. Acute asthma exacerbation- improving - Will continue on short steroid taper and antibiotics as outpatient - Continue on bronchodilators - CXR negative for acute issues - Mucinex for productive cough 2. DM - A1c noted - Dm education consultation appreciated - Continue on Lantus and will add Novolog 4 units with meals - Novolog 70/30 to be given with solumedrol - will hold PO home medications until discharge 3. Disposition - Medically stable for discharge home Result Diagram: 03/28/18 0539 03/31/18 0452 Results 24hrs Laboratory Tests Test 03/30/18 12:10 03/30/18 17:33 03/30/18 20:28 03/31/18 02:50 Bedside Glucose 314 H 317 H 329 H 272 H Test 03/31/18 04:52 03/31/18 07:57 Sodium Level 137 Potassium Level 4.8 Chloride Level 100 Carbon Dioxide 26 Level Anion Gap 11 Blood Urea 23 H Nitrogen Creatinine 0.56 Glucose Level 299 H Calcium Level 9.8 Phosphorus Level 4.9 Magnesium Level 1.9 Albumin 4.0 Bedside Glucose 205 Subjective 24 Hr Interval Summary Free Text/Dictation Patient doing well and feeling significantly better. Denies any new issues or acute overnight events. Exam/Review of Systems Vital Signs Vitals Vital Signs Date Temp Pulse Resp B/P (MAP) Pulse Ox O2 O2 Flow FiO2 Time Delivery Rate 03/31/18 69 20 95 21 08:09 03/31/18 98.5 126/71 Room Air 07:30 (89) 03/30/18 2.0 14:35 Intake and Output 03/30/18 03/30/18 03/31/18 1515:00 23:00 07:00 IntakeIntake Total 360 ml 480 ml BalanceBalance 360 ml 480 ml Exam General: no acute distress. awake and answering questions appropriately. no acute distress Neck: Supple Lungs: Mild expiratory wheezing. diminished air entry but no crackles appreciated Heart: S1, S2, Regular rate and rhythm, no murmurs appreciated Abdomen: Soft , nontender, nondistended , bowel sounds are present. No guarding no rebound tenderness Extremities: Normal to inspection, no edema no cyanosis Skin: no new rash or lesion appreciated Medications Medications Current Medications IV Flush (NS 3 ml) 3 ml PER PROTOCOL IV ; Start 03/27/18 at 22:00 Ondansetron HCl (Zofran Inj) 4 mg Q6H PRN IV NAUSEA AND/OR VOMITING; Start 03/27/18 at 22:00 Acetaminophen (Tylenol Tab) 650 mg Q6H PRN PO PAIN LEVEL 1-3 OR FEVER Last administered on 03/28/18at 11:07; Admin Dose 650 MG; Start 03/27/18 at 22:00 Insulin Aspart (Novolog Insulin Pen) NOVOLOG *MILD* ALGORITHM WITH MEALS BEDTIME SC Last administered on 03/31/18at 08:00; Admin Dose 2 UNIT; Start 03/28/18 at 08:00 Fluticasone/ Vilanterol (Breo Ellipta 100-25 Mcg Inh) 1 inh DAILY INH Last administered on 03/31/18at 08:02; Admin Dose 1 INH; Start 03/28/18 at 09:00 Levalbuterol (Xopenex Neb) 0.63 mg Q2H RESP THERAPY PRN HHN shortness of breath; Start 03/28/18 at 09:00 Enoxaparin Sodium (Lovenox) 40 mg DAILY SC Last administered on 03/31/18at 08:01; Admin Dose 40 MG; Start 03/28/18 at 09:00 Miscellaneous Information 1 ea NOTE XX ; Start 03/28/18 at 09:00 Glucose (Glutose) 15 gm Q15M PRN PO DECREASED GLUCOSE; Start 03/28/18 at 09:00 Glucose (Glutose) 22.5 gm Q15M PRN PO DECREASED GLUCOSE; Start 03/28/18 at 09:00 Dextrose (D50w Syringe) 25 ml Q15M PRN IV DECREASED GLUCOSE; Start 03/28/18 at 09:00 Dextrose (D50w Syringe) 50 ml Q15M PRN IV DECREASED GLUCOSE; Start 03/28/18 at 09:00 Glucagon (Glucagen) 1 mg Q15M PRN IM DECREASED GLUCOSE; Start 03/28/18 at 09:00 Glucose (Glutose) 15 gm Q15M PRN BUCCAL DECREASED GLUCOSE; Start 03/28/18 at 09:00 Azithromycin (Zithromax) 250 mg DAILY PO Last administered on 03/31/18 08:02; Admin Dose 250 MG; Start 03/29/18 at 09:00; Stop 04/02/18 at 08:59 Levalbuterol (Xopenex Neb) 0.63 mg Q4HWA RESP THERAPY HHN Last administered on 03/31/18 08:09; Admin Dose 0.63 MG; Start 03/29/18 at 09:00 Insulin Glargine (Lantus) 14 units DAILY@2000 SC Last administered on 03/30/18at 20:34; Admin Dose 14 UNITS; Start 03/29/18 at 20:00 Guaifenesin (Mucinex) 600 mg BID PO Last administered on 03/31/18 08:02; A dmin Dose 600 MG; Start 03/29/18 at 12:30 Polyethylene Glycol (Miralax) 17 gm DAILY PRN PO CONSTIPATION; Start 03/29/18 at 12:00 Prednisone (Prednisone) 40 mg DAILY PO Last administered on 03/31/18at 08:48; Admin Dose 40 MG; Start 03/31/18 at 09:00 Insulin Aspart (Novolog Insulin Pen) 4 unit WITH MEALS SC Last administered on 03/31/18 08:00; Admin Dose 4 UNIT; Start 03/30/18 at 17:35 CAROLA NICHOLE MD Mar 31, 2018 10:18
[2018-03-31] MEDS ORDERED: AZIT250T13 PO (10:27)
[2018-03-31] MEDS ORDERED: PRED10TA PO (10:27)
[2018-03-31] MEDS ORDERED: GUAI600T23 PO (10:27)
--- NOTE | 2018-03-31 10:37 | PDOCDIS ---
Discharge Instructions DIAGNOSIS Discharge Diagnosis 1. Acute asthma exacerbation- improving 2. DM CONDITION [id number] Patient Condition: [id number] Stable HOME CARE INSTRUCTIONS: [id number] Diet Instructions: [id number] Low Fat /Cholesterol [id number] Special Diet: [id number] low carb, low sugar diet ACTIVITY: [id number] Activity Restrictions: [id number] No Restrictions FOLLOW UP/APPOINTMENTS Follow-up Plan 1. Follow up with your primary care physician in 1 week 2. Follow up with your lung doctor in 1-2 weeks 3. Continue Azithromycin for 2 more day, next dose is 04/01 4. Continue Prednisone taper as follows: 40mg (4 tabs) for 2 days starting tomorrow, then 30mg (3 tabs) for 3 days then 20mg (2 tabs) for 3 days then 10mg (1 tabs) for 3 days then stop 5. Continue inhalers as previously prescribed 6. Continue on low carb, low sugar diet and monitor your sugars. If remains elevated, you will need to discuss with your PCP medication adjustments to ensure better control 7. If symptoms return or worsen, please go to your nearest emergency department 1. seguimiento con fisher mdico de atencin primaria en 1 semana 2. seguimiento con fisher mdico de pulmn en 1-2 semanas 3. Contine azitromicina lisa 2 yoder ms, la siguiente dosis es de 04/01 4. contine la forma cnica de prednisona tommy sigue: 40mg (4 lengetas) para 2 yoder a partir de maana, entonces 30mg (3 lengetas) por 3 yoder entonces 20mg (2 lengetas) por 3 yoder entonces 10mg (1 lengetas) por 3 yoder entonces pare 5. Contine inhaladores segn lo prescrito previamente 6. Contine en la dieta baja en carbohidratos, bajo azcar y monitoree stephanie azcares. Si sigue siendo elevado, tendr que hablar con los ajustes de medicacin de fisher PCP para asegurar un mejor control 7. Si los sntomas regresan o empeoran, por favor vaya a fisher Departamento de emergencias CAROLA King MD Mar 31, 2018 10:37
--- NOTE | 2018-03-31 13:38 | NUR ---
NURSE NOTES: patient alert and oriented x 4, able to make needs known remained stable throughout the shift with no acute changes noted. No SOB or distress. All due medications were given, tolerated well. Performed blood sugar checks as scheduled. Iv patent and intact. Skin assessment done, skin intact. Patient refused pictures to be taken on her buttocks and heels. Health teachings were gievn to patient and , verbalized understanding, teachings were given using teach back method. IV removed with intact and patent lumen. All belongings complete. No missing items. Patient and were accompanied by volunteer to exit.
--- NOTE | 2018-03-31 17:50 | DS ---
Date/Time of Note Date/Time of Note DATE: 03/31/18 TIME: 17:48 Discharge Summary Admission/Discharge Info Admit Date/Time Mar 27, 2018 at 21:17 Discharge Date/Time Mar 31, 2018 at 13:45 Discharge Diagnosis 1. Acute asthma exacerbation- improving 2. DM Patient Condition: Stable Procedures PROCEDURE: XR Chest. CLINICAL INDICATION: chest pain TECHNIQUE: Single frontal view of the chest was obtained COMPARISON: 04/06/16 FINDINGS: The heart and mediastinum are within normal limits. The lungs are clear. There is no pleural effusion or pneumothorax. RPTAT: AA IMPRESSION: No acute disease. .Anthony Borrego MD, MD Date Time Electronically viewed and signed by .Anthony Borrego MD, MD on 03/27/2018 17:05 Hx of Present Illness Chief complaint: Wheezing times 1 day, shortness of breath times 1 month 57-year-old female with a history of diabetes mellitus type 2 and asthma, last admission was April 2017 but never intubated, presents to the ED complaining of several week history of shortness of breath which has been worsening over the last week and become severe since yesterday. She reports that she was seen by her primary care doctor approximately 3 times and was given antibiotics for possible pneumonia as well as steroids and nebulization. Nonproductive cough but no hemoptysis. Denies chest pain or palpitations. No abdominal pain, nausea vomiting. No URI symptoms, rhinorrhea or odynophagia. No leg pain or swelling. No fevers or chills. Allergies: NKDA Hospital Course Patient was admitted for treatment of acute asthma exacerbation and started on IVF, steroids, and short course of antibiotics. Patients home bronchodilators were continued and respiratory status improved during course of hospitalization. Patient was found with elevated A1c and counseled about need for better glucose control. Discussion was held about initiation of insulin but patient refused and requested to follow up with PCP for management. Patients presenting symptoms improved significantly and on day of discharge vitals and physical exam were stable. Patient was discharged home in good condition with PO antibiotics and steroid taper. Home Meds Active Scripts Prednisone* (Prednisone*) 10 Mg Tab, 10 MG PO DAILY for 11 Days, #26 TAB 40mg for 2 days then 30mg for 3 days then 20mg for 3 days then 10mg for 3 days then stop Prov:CAROLA NICHOLE MD 03/31/18 Guaifenesin (Guaifenesin) 600 Mg Tablet.sa, 600 MG PO BID PRN for COUGH for 7 Days, #14 TAB Prov:CAROLA NICHOLE MD 03/31/18 Azithromycin* (Azithromycin*) 250 Mg Tablet, 250 MG PO DAILY for 2 Days, #2 TAB Prov:CAROLA NICHOLE MD 03/31/18 Reported Medications Albuterol Sulfate* (Proair HFA*) 8.5 Gm Hfa.aer.ad, 2 PUFF INH Q4H PRN for WHEEZING AND SOB, #1 INHALER 03/27/18 Salmeterol Xinaf/Fluticasone* (Advair*) 250-50 Diskus Inhaler, 1 INH INHALATION BID, #1 INHALER 03/27/18 Glipizide* (Glipizide*) 10 Mg Tablet, 10 MG PO AC BREAKFAST DINNER, TAB 03/27/18 Metformin Hcl* (Metformin Hcl*) 1,000 Mg Tablet, 1000 MG PO WITH BREAKFAST DINNE, #60 TAB 03/27/18 Discontinued Reported Medications Albuterol Sulfate* (Proair HFA*) 8.5 Gm Hfa.aer.ad, 2 PUFF INH Q6H PRN for WHEEZING AND SOB, #1 INHALER 04/22/17 Salmeterol Xinaf/Fluticasone* (Advair*) 250-50 Diskus Inhaler, 1 INH INHALATION BID, #1 INHALER 04/22/17 Metformin Hcl* (Metformin Hcl*) 1,000 Mg Tablet, 1000 MG PO WITH BREAKFAST DINNE, #60 TAB 04/22/17 Glipizide* (Glipizide*) 5 Mg Tablet, 5 MG PO AC BREAKFAST DINNER, TAB 04/22/17 Discontinued Scripts Prednisone* (Prednisone*) 50 Mg Tablet, 50 MG PO DAILY for 4 Days, #4 TAB Prov:REZA TILLEY MD 04/26/17 Albuterol Sulfate* (Albuterol Sulfate* Neb) 0.083%-3 Ml Neb, 1.25 MG NEB Q3H PRN for WHEEZING AND SOB, #30 VIAL Prov:REZA TILLEY MD 04/26/17 Follow-up Plan 1. Follow up with your primary care physician in 1 week 2. Follow up with your lung doctor in 1-2 weeks 3. Continue Azithromycin for 2 more day, next dose is 04/01 4. Continue Prednisone taper as follows: 40mg (4 tabs) for 2 days starting tomorrow, then 30mg (3 tabs) for 3 days then 20mg (2 tabs) for 3 days then 10mg (1 tabs) for 3 days then stop 5. Continue inhalers as previously prescribed 6. Continue on low carb, low sugar diet and monitor your sugars. If remains elevated, you will need to discuss with your PCP medication adjustments to ensure better control 7. If symptoms return or worsen, please go to your nearest emergency department 1. seguimiento con fisher mdico de atencin primaria en 1 semana 2. seguimiento con fisher mdico de pulmn en 1-2 semanas 3. Contine azitromicina lisa 2 yoder ms, la siguiente dosis es de 04/01 4. contine la forma cnica de prednisona tommy sigue: 40mg (4 lengetas) para 2 yoder a partir de maana, entonces 30mg (3 lengetas) por 3 yoder entonces 20mg (2 lengetas) por 3 yoder entonces 10mg (1 lengetas) por 3 yoder entonces pare 5. Contine inhaladores segn lo prescrito previamente 6. Contine en la dieta baja en carbohidratos, bajo azcar y monitoree stephanie azcares. Si sigue siendo elevado, tendr que hablar con los ajustes de medicacin de fisher PCP para asegurar un mejor control 7. Si los sntomas regresan o empeoran, por favor vaya a fisher Departamento de emergencias ms cercano Primary Care Provider Not On Staff Doctor Time spent on discharge: > 30 minutes Pending Labs Laboratory Tests Test 03/30/18 20:28 03/31/18 02:50 03/31/18 04:52 03/31/18 07:57 Bedside 329 272 205 Glucose mg/dL (70-220) mg/dL (70-220) mg/dL (70-220) Sodium Level 137 mmol/L (135-14 4) Potassium 4.8 Level mmol/L (3.5-5. 1) Chloride Level 100 mmol/L (97-110 ) Carbon Dioxide 26 Level mmol/L (21-31) Anion Gap 11 (5-13) Blood Urea 23 Nitrogen mg/dl (7-20) Creatinine 0.56 mg/dl (0.44-1. 00) Glucose Level 299 mg/dl (70-220) Calcium Level 9.8 mg/dl (8.4-10. 2) Phosphorus 4.9 Level mg/dl (2.5-4.9 ) Magnesium 1.9 Level mg/dl (1.7-2.5 ) Albumin 4.0 g/dl (3.3-4.9) Test 03/31/18 11:54 Bedside 249 Glucose mg/dL (70-220) CAROLA NICHOLE MD Mar 31, 2018 17:50
== END 2018-03-31 13:45 | disposition home or self-care (01) | DRG 203 ==
LOC: E/R 16:17 → PP2 21:17
PROVIDERS: ADMIT Family Medicine; ATTEND Internal Medicine
DX: J45.901 Unspecified asthma with (acute) exacerbation (principal); E11.9 Type 2 diabetes mellitus without complications
CPT/HCPCS: 71045; 80048; 80053; 80061; 80069; 82962; 83036; 83735; 84443; 84484; 85025; 93005; 94640; 94644; 94645; 94664; 96361; 96374; J0456; J1644; J1650; J1815; J1817; J2920; J2930; J7030; J7512

== ENCOUNTER 2018-05-24 13:25 | Inpatient (IN) | payer BC ==
[~2018-05-24] VITALS: Ht 162.6 cm; Wt 66.1 kg
[~2018-05-24 13:25] MED LIST changes: -ALBU2.5V3 NEB; +AZIT250T13 PO; +GLIP10TA14 PO; -GLIP5TAB13 PO; +GUAI600T23 PO; +PRED10TA PO; -PRED50TA PO
[2018-05-24] MEDS ORDERED: DEXAMETHASONE 10 MG/ML 1 ML INJ IV STA (13:44)
[2018-05-24] MEDS ORDERED: ALBUTEROL 0.5% (NEB) 2.5 MG/0.5 ML AMP INH STA ×2 (13:44→15:16)
[2018-05-24] MEDS ORDERED: CEFTRIAXONE 1 GM/50 ML (PMX) 50 ML IVPB STA (13:44)
[2018-05-24] MEDS ORDERED: AZITHROMYCIN 500MG/NS (PMX) 250 ML IV STA (13:44)
[2018-05-24] MEDS ORDERED: MAGNESIUM SULFATE 2 GM/50 ML 50 ML IVPB STA (13:44)
[2018-05-24] MEDS ORDERED: SODIUM CHLORIDE 0.9% 1L BAG IV* STA (13:44)
[2018-05-24] MEDS ORDERED: IPRATROPIUM (NEB) 0.5 MG/2.5 ML AMP INH STA (15:16)
[2018-05-24] MEDS ORDERED: ACETAMINOPHEN 325 MG TAB PO PRN (16:00)
[2018-05-24] MEDS ORDERED: ONDANSETRON 4 MG INJ IV PRN ×2 (16:00→17:00)
[2018-05-24] MEDS ORDERED: GUAIFENESIN LA 600 MG TABSR PO PRN (17:00)
[2018-05-24] MEDS ORDERED: ALBUTEROL 0.083% (NEB) 2.5 MG/3 ML AMP HHN PRN (17:00)
[2018-05-24] MEDS ORDERED: MAGNESIUM HYDROXIDE 30ML CUP PO PRN (17:00)
[2018-05-24] MEDS ORDERED: DOCUSATE SODIUM 100 MG CAP PO PRN (17:00)
[2018-05-24] MEDS ORDERED: NACL 0.9% 3 ML SYG IV SCH (17:00)
--- NOTE | 2018-05-24 17:03 | HP ---
Date/Time of Note Date/Time of Note DATE: 05/24/18 TIME: 17:03 Assessment/Plan VTE Prophylaxis SCD applied (from Nsg): Yes Pharmacological prophylaxis: LMWH Lines/Catheters IV Catheter Type (from Nrsg): Saline Lock Assessment/Plan Assessment/Plan 1. Acute asthma exacerbation - Will consult pulmonology given patient was here 1.5 months ago with similar symptoms - continue on steroids, nebs and antibiotics - monitor for improvement - o2 as needed 2. DM - A1c ordered - will continue ISS and accuchecks - Novolog 70/30 added and to be given with solumedrol 3. Lactic acidosis - on metformin - does not appear septic - monitor for improvement - fluids given in ED 4. Diet - Carb diet 5. DVT ppx - LMWH 6. Disposition - Admit to med/surg for treatment of asthma exacerbation Result Diagram: 05/24/18 1354 05/24/18 1354 Results 24hrs Laboratory Tests Test 05/24/18 13:54 05/24/18 13:55 05/24/18 16:59 White Blood Count 13.0 #H Red Blood Count 5.21 Hemoglobin 12.7 Hematocrit 39.4 Mean Corpuscular Volume 75.6 L Mean Corpuscular Hemoglobin 24.4 L Mean Corpuscular Hemoglobin Concent 32.2 Red Cell Distribution Width 13.9 Platelet Count 306 Mean Platelet Volume 9.8 Immature Granulocytes % 0.500 H Neutrophils % 55.1 Lymphocytes % 22.4 Monocytes % 6.1 Eosinophils % 15.5 H Basophils % 0.4 Nucleated Red Blood Cells % 0.0 Immature Granulocytes # 0.060 H Neutrophils # 7.2 Lymphocytes # 2.9 Monocytes # 0.8 Eosinophils # 2.0 H Basophils # 0.1 Nucleated Red Blood Cells # 0.0 Prothrombin Time 11.6 L Prothrombin Time Ratio 0.9 INR International Normalized Ratio 0.84 Activated Partial Thromboplast Time 27.6 Urine Color STRAW Urine Clarity CLEAR Urine pH 5.0 Urine Specific [place] 1.005 Urine Ketones NEGATIVE Urine Nitrite NEGATIVE Urine Bilirubin NEGATIVE Urine Urobilinogen NEGATIVE Urine Leukocyte Esterase NEGATIVE Urine Hemoglobin NEGATIVE Urine Glucose NEGATIVE Urine Total Protein NEGATIVE Sodium Level 136 Potassium Level 4.1 Chloride Level 99 Carbon Dioxide Level 26 Anion Gap 11 Blood Urea Nitrogen 13 Creatinine 0.52 Est Glomerular Filtrat Rate mL/min > 60 Glucose Level 237 H Calcium Level 9.9 Total Bilirubin 0.1 L Direct Bilirubin 0.00 Indirect Bilirubin 0.1 Aspartate Amino Transf (AST/SGOT) 18 Alanine Aminotransferase (ALT/SGPT) 20 Alkaline Phosphatase 117 Troponin I < 0.012 Total Protein 7.0 Albumin 4.5 Globulin 2.50 Albumin/Globulin Ratio 1.80 POC Venous Lactate 2.5 *H 2.6 *H HPI/ROS Admit Date/Time Admit Date/Time 05/24/18 1800 Hx of Present Illness 57 yo F with PMH Diabetes and Asthma presented for worsening shortness of breath, wheezing, and nonproductive cough. Patient admits to flu like symptoms 1 week ago prior to worsening of condition. She was discharged in March for similar presentation and states she continued with mild shortness of breath and believes the cold weather may have exacerbated her symptoms as well. Patient denies chest pain, nausea, vomiting, dizziness, abdominal pain, constipation, diarrhea, or urinary issues. ROS All 12 systems reviewed and pertinent positives as per HPI. All others negative. Constitutional: No chills, No nausea Eyes: No discharge ENT: congestion Respiratory: cough, shortness of breath, wheezing; No sputum Cardiovascular: No chest pain, No lightheadedness, No palpitations Gastrointestinal: No constipation, No diarrhea, No nausea, No vomiting Genitourinary: no complaints Musculoskeletal: no complaints Skin: no complaints Neurologic: No confusion, No focal-weakness, No syncope Endocrine: no complaints Lymphatic: no complaints Psychological: nl mood/affect Immunologic: no complaints PMH/Family/Social Past Medical History Medical History: diabetes, other (asthma) Medications Current Medications Ondansetron HCl (Zofran Inj) 4 mg BRIDGE ORDER PRN IV NAUSEA/VOMITING; Start 05/24/18 at 16:00; Stop 05/25/18 at 15:59 Acetaminophen (Tylenol Tab) 650 mg ER BRIDGE PRN PO .MILD PAIN 1-3 OR TEMP; Start 05/24/18 at 16:00; Stop 05/25/18 at 15:59 Coded Allergies: No Known Allergies (Verified Allergy, Unknown, 03/27/18) Past Surgical History Past Surgical Hx: cholecystectomy Family History Significant Family History: no pertinent family hx Social History Alcohol Use: none Smoking Status: Never smoker Drug Use: none Exam/Review of Systems Vital Signs Vitals Vital Signs Date Temp Pulse Resp B/P (MAP) Pulse Ox O2 O2 Flow FiO2 Time Delivery Rate 05/24/18 91 20 94 Nasal 2.0 15:24 Cannula 05/24/18 98.2 167/84 13:28 (111) Exam Exam General: Patient is a pleasant female, currently lying in bed, no acute distress HEENT: Atraumatic, normocephalic. The pupils are equal, round and reactive. Extraocular motor are intact Neck: Supple with full range of motion. No rigidity or meningismus Chest: Nontender Lungs: Diminished, expiratory wheezing appreciated. no crackles Heart: Normal S1-S2, Regular rate and rhythm. no murmurs Abdomen: Soft , nontender, nondistended , bowel sounds are present. No guarding no rebound tenderness , No masses or organomegaly. No costovertebral temporal angle mass Extremities: Normal to inspection, no edema no cyanosis Neurologic: Normal mental status, speech normal, cranial nerves II through XII are intact, motor and sensory are intact, Additional Comments Home medications reviewed PROCEDURE: XR Chest. CLINICAL INDICATION: Sepsis. TECHNIQUE: Single frontal view. COMPARISON: 03/27/2018. FINDINGS: The lungs are clear. The heart size is normal. There is no pleural effusion. There is no pneumothorax. IMPRESSION: 1. Normal chest radiograph. 2. No change from 03/27/2018. RPTAT: QQ .Felipe Grijalva MD, MD Date Time Electronically viewed and signed by .Felipe Grijalva MD, MD on 05/24/2018 14:07 CRAOLA NICHOLE MD May 24, 2018 17:03
[2018-05-24 17:10] VITALS: BP 152/69; PULSE 99; RESP 18
[2018-05-24] MEDS ORDERED: GLUCOSE GEL 15 GRAM TUBE BUCCAL PRN (17:30)
[2018-05-24] MEDS ORDERED: GLUCOSE GEL 15 GRAM TUBE PO PRN ×2 (17:30)
[2018-05-24] MEDS ORDERED: DEXTROSE 50% 50 ML SYRINGE IV PRN ×2 (17:30)
[2018-05-24] MEDS ORDERED: glipiZIDE 10 MG TAB PO SCH (17:30)
[2018-05-24] MEDS ORDERED: GLUCAGON 1 MG INJ IM PRN (17:30)
[2018-05-24 17:38] VITALS: Ht 162.6 cm; Wt 66.1 kg
--- NOTE | 2018-05-24 19:22 | ERD ---
ER Documentation Chief Complaint Chief Complaint SOB WITH CP & MILD PALE SKIN COLOR HPI 57-year-old female with a history of diabetes and moderate persistent asthma presenting with complaints of shortness of breath and chest discomfort. Her symptoms have been worsening over the past few days. She states that she was recently hospitalized a few months ago for asthma exacerbation. At that time she was treated for a pneumonia and treated with steroids. She states she is somewhat improved but has never completely improved. She has been on about 3 courses of antibiotics since March as well as prednisone. This past week, s he started coughing with brown colored sputum. She denies any fevers or chills. She complains of shortness of breath that has not completely alleviated with her home albuterol. No other associated symptoms. ROS All systems reviewed and are negative except as per history of present illness. Medications Home Meds Active Scripts Prednisone* (Prednisone*) 10 Mg Tab, 10 MG PO DAILY for 11 Days, #26 TAB 40mg for 2 days then 30mg for 3 days then 20mg for 3 days then 10mg for 3 days then stop Prov:CAROLA NICHOLE MD 03/31/18 Guaifenesin (Guaifenesin) 600 Mg Tablet.sa, 600 MG PO BID PRN for COUGH for 7 Days, #14 TAB Prov:CAROLA NICHOLE MD 03/31/18 Azithromycin* (Azithromycin*) 250 Mg Tablet, 250 MG PO DAILY for 2 Days, #2 TAB Prov:CAROLA NICHOLE MD 03/31/18 Reported Medications Albuterol Sulfate* (Proair HFA*) 8.5 Gm Hfa.aer.ad, 2 PUFF INH Q4H PRN for WHEEZING AND SOB, #1 INHALER 03/27/18 Salmeterol Xinaf/Fluticasone* (Advair*) 250-50 Diskus Inhaler, 1 INH INHALATION BID, #1 INHALER 03/27/18 Glipizide* (Glipizide*) 10 Mg Tablet, 10 MG PO AC BREAKFAST DINNER, TAB 03/27/18 Metformin Hcl* (Metformin Hcl*) 1,000 Mg Tablet, 1000 MG PO WITH BREAKFAST DINNE, #60 TAB 03/27/18 Allergies Allergies: Coded Allergies: No Known Allergies (Verified Allergy, Unknown, 03/27/18) PMhx/Soc History of Surgery: Yes (Lap jose angel) Anesthesia Reaction: No Hx Neurological Disorder: Yes (occasssional numbness in hands and feet) Hx Respiratory Disorders: Yes (asthma) Hx Cardiac Disorders: No Hx Psychiatric Problems: No Hx Miscellaneous Medical Probl: No Hx Alcohol Use: No Hx Substance Use: No Hx Tobacco Use: No Smoking Status: Never smoker FmHx Family History: No coronary disease Physical Exam Vitals Vital Signs Date Temp Pulse Resp B/P (MAP) Pulse Ox O2 O2 Flow FiO2 Time Delivery Rate 05/24/18 91 20 94 Nasal 2.0 15:24 Cannula 05/24/18 98 2.0 15:24 05/24/18 87 21 130/56 100 15.0 15:00 (80) 05/24/18 98.6 80 19 123/67 100 15.0 14:19 (85) 05/24/18 82 22 93 Nasal 3.0 14:16 Cannula 05/24/18 Nasal 3.0 14:04 Cannula 05/24/18 Nasal 3 14:04 Cannula 05/24/18 25 142/75 89 3.0 13:40 (97) 05/24/18 98.2 100 26 167/84 91 13:28 (111) Physical Exam Const: Mild respiratory distress, able to speak in full sentences Head: Atraumatic Eyes: Normal Conjunctiva ENT: Normal External Ears, Nose and Mouth. Neck: Full range of motion. No meningismus. No JVD Resp: Tachypneic. Diminished breath sounds bilaterally with expiratory wheezing throughout. No rales or rhonchi Cardio: Tachycardic, regular rhythm, no murmurs Abd: Soft, non tender, non distended. Normal bowel sounds Skin: No petechiae or rashes Back: No midline or flank tenderness Ext: No cyanosis, or edema Neur: Awake and alert Psych: Normal Mood and Affect Result Diagram: 05/24/18 1354 05/24/18 1354 Results 24 hrs Laboratory Tests Test 05/24/18 13:54 05/24/18 13:55 White Blood Count 13.0 10^3/ul Red Blood Count 5.21 10^6/ul Hemoglobin 12.7 g/dl Hematocrit 39.4 % Mean Corpuscular Volume 75.6 fl Mean Corpuscular Hemoglobin 24.4 pg Mean Corpuscular Hemoglobin Concent 32.2 g/dl Red Cell Distribution Width 13.9 % Platelet Count 306 10^3/UL Mean Platelet Volume 9.8 fl Immature Granulocytes % 0.500 % Neutrophils % 55.1 % Lymphocytes % 22.4 % Monocytes % 6.1 % Eosinophils % 15.5 % Basophils % 0.4 % Nucleated Red Blood Cells % 0.0 /100WBC Immature Granulocytes # 0.060 10^3/ul Neutrophils # 7.2 10^3/ul Lymphocytes # 2.9 10^3/ul Monocytes # 0.8 10^3/ul Eosinophils # 2.0 10^3/ul Basophils # 0.1 10^3/ul Nucleated Red Blood Cells # 0.0 10^3/ul Prothrombin Time 11.6 Sec Prothrombin Time Ratio 0.9 INR International Normalized Ratio 0.84 Activated Partial Thromboplast Time 27.6 Sec Urine Color STRAW Urine Clarity CLEAR Urine pH 5.0 Urine Specific [place] 1.005 Urine Ketones NEGATIVE mg/dL Urine Nitrite NEGATIVE mg/dL Urine Bilirubin NEGATIVE mg/dL Urine Urobilinogen NEGATIVE mg/dL Urine Leukocyte Esterase NEGATIVE Aleena/ul Urine Hemoglobin NEGATIVE mg/dL Urine Glucose NEGATIVE mg/dL Urine Total Protein NEGATIVE mg/dl Sodium Level 136 mmol/L Potassium Level 4.1 mmol/L Chloride Level 99 mmol/L Carbon Dioxide Level 26 mmol/L Anion Gap 11 Blood Urea Nitrogen 13 mg/dl Creatinine 0.52 mg/dl Est Glomerular Filtrat Rate mL/min > 60 mL/min Glucose Level 237 mg/dl Hemoglobin A1c 12.0 % Calcium Level 9.9 mg/dl Total Bilirubin 0.1 mg/dl Direct Bilirubin 0.00 mg/dl Indirect Bilirubin 0.1 mg/dl Aspartate Amino Transf (AST/SGOT) 18 IU/L Alanine Aminotransferase (ALT/SGPT) 20 IU/L Alkaline Phosphatase 117 IU/L Troponin I < 0.012 ng/ml Total Protein 7.0 g/dl Albumin 4.5 g/dl Globulin 2.50 g/dl Albumin/Globulin Ratio 1.80 POC Venous Lactate 2.5 mmol/L Current Medications Medications Dose Sig/Jose Elias Start Time Status Last (Trade) Ordered Route PRN Stop Time Admin Dose Reason Admin Sodium 1,890 ml BOLUS OVER 2 05/24/18 DC 05/24/18 Chloride HOURS STAT 13:44 14:00 (NS) IV* 05/24/18 13:50 Ceftriaxone 50 ml @ ONCE STAT 05/24/18 DC 2/20/19 Sodium 100 mls/hr IVPB 13:44 14:00 05/24/18 14:13 Azithromycin 250 ml @ ONCE STAT 05/24/18 DC 05/24/18 250 mls/hr IV 13:44 14:25 05/24/18 14:43 Albuterol 10 mg ONCE STAT 05/24/18 DC 05/24/18 (Proventil INH 13:44 14:16 0.5% (Neb)) 05/24/18 13:50 10 mg ONCE STAT 05/24/18 DC 05/24/18 Dexamethasone IV 13:44 14:00 (Decadron) 05/24/18 13:51 Magnesium 50 ml @ 25 ONCE STAT 05/24/18 DC 05/24/18 Sulfate mls/hr IVPB 13:44 14:24 05/24/18 15:43 Albuterol 10 mg ONCE STAT 05/24/18 DC 05/24/18 (Proventil INH 15:16 15:22 0.5% (Neb)) 05/24/18 15:17 Ipratropium 1 mg ONCE STAT 05/24/18 DC 05/24/18 [place] INH 15:16 15:22 (Atrovent 05/24/18 15:17 0.02% (Neb)) Procedures/MDM EMERGENT LABS AND DIAGNOSTIC STUDIES: Lab Results above were reviewed and interpreted by me. CBC: Leukocytosis, no anemia CMP: Hyperglycemia. No evidence of electrolyte abnormality, acidosis, renal failure, hypoglycemia, liver failure, or biliary obstruction Troponin within normal limits, not indicative of cardiac ischemia Lactate elevated, concerning for possible sepsis Second lactate elevated, likely secondary to continuous albuterol treatment 12-lead EKG was interpreted by Samira Curtis MD: Normal Sinus Rhythm Normal axis Normal intervals No acute ST or T wave changes suggestive of acute ischemia or STEMI. Radiology Results as interpreted by Radiology below were reviewed by Constance Curtis MD: Chest x-ray shows no acute abnormalities Initial Nursing notes reviewed. Previous Medical Records requested via the Electronic Health Record. EMERGENCY DEPARTMENT COURSE / MEDICAL DECISION MAKING: Patient is presenting with asthma exacerbation with concern for possible bacterial lower respiratory tract infection. She presented tachypneic and tachycardic. Sepsis workup was initiated although she did not have a fever. Broad-spectrum antibiotics and IV fluids given. She was started on steroids and continuous albuterol treatment with some improvement in her symptoms. She was also started on IV magnesium. Her initial lactate was elevated. Her subsequent lactate after 2 continues albuterol treatments was persistently elevated, however I do not suspect this is secondary to severe sepsis. I suspect this is secondary to the albuterol treatment. Patient's respiratory symptoms have not completely stabilized and the patient is at risk of rapid decompensation. She continues to have hypoxia on room air. The patient will be admitted for careful hydration, antibiotic therapy, and infectious source control. Severe Sepsis Assessment: Infectious Source: Lower respiratory tract infection End organ damage indicated by: Lactate > 2.0 mmol/L Acute Resp Failure (sat < 92% w/o oxygen) Severe Sepsis Managment: Blood Cultures X 2 before broad spectrum antibiotics initiated within 3 hours of recognition. 30 ml/kg NS bolus Completed Initial Lactate: 2.5 Repeat Lactate 2.6 Critical Care: Time: 40 minutes Treatments/Evaluations: Emergent fluid management, while maintaining close respiratory support. Immediate broad spectrum antibiotic therapy. Simultaneous assessment for possible sources in order to direct therapy. Consideration for invasive and chemical support to prevent respiratory or cardiac collapse. Septic Shock Assessment (1 hour post 30 ml/kg fluid bolus): Hypotension (SBP < 90 or 40 mmHg drop, MAP < 65): No Lactic acid > 4.0 no Accepting Care Team: Current data and ongoing care discussed. Time: Time of admission Primary Provider: Dr. Hao Herrera Diagnosis: Primary Impression: Acute respiratory failure with hypoxia Additional Impressions: Asthma exacerbation Asthma severity: unspecified severity Asthma persistence: persistent Qualified Codes: J45.901 - Unspecified asthma with (acute) exacerbation Lower respiratory tract infection Severe sepsis Condition: Fair TOAN CURTIS MD May 24, 2018 19:22
[2018-05-24 20:00] VITALS: BP 126/59; PULSE 93; RESP 20
[2018-05-24] MEDS: SOD CHLORIDE 0.9% 1,000 ML IV SCH (20:08)
[2018-05-24] MEDS: FAMOTIDINE 20 MG TAB PO SCH (20:13)
[2018-05-24] MEDS: ALBUTEROL/IPRATROPIUM (NEB) 3 ML AMP HHN SCH (20:51)
[2018-05-24] MEDS: INSULIN ASPART [NOVOLOG] 3 ML PEN SC SCH (21:30)
[2018-05-24] MEDS ORDERED: INSULIN ASPART [NOVOLOG] 3 ML PEN SC ONE (22:00)
[2018-05-24] MEDS: INSULIN ASP PROT/ASPART (70/30) PEN SC SCH (22:09)
[2018-05-24] MEDS: METHYLPREDNISOLONE 40 MG INJ IV SCH (22:09)
[2018-05-25 02:00] VITALS: BP 122/58; PULSE 72; RESP 20
[2018-05-25] MEDS ORDERED: INSULIN ASPART [NOVOLOG] 3 ML PEN SC ONE ×2 (02:30→18:00)
[2018-05-25] MEDS: METHYLPREDNISOLONE 40 MG INJ IV SCH ×3 (06:19→21:48)
[2018-05-25 07:50] VITALS: BP 126/60; PULSE 75; RESP 16
[2018-05-25] MEDS: ALBUTEROL/IPRATROPIUM (NEB) 3 ML AMP HHN SCH ×3 (08:00→19:49)
[2018-05-25] MEDS: INSULIN ASPART [NOVOLOG] 3 ML PEN SC SCH ×4 (08:04→21:02)
[2018-05-25] MEDS: INSULIN ASP PROT/ASPART (70/30) PEN SC SCH ×3 (08:04→21:48)
[2018-05-25] MEDS: ENOXAPARIN 40 MG/0.4 ML SYG SC SCH (08:05)
[2018-05-25] MEDS: ACETAMINOPHEN 325 MG TAB PO PRN (08:05)
[2018-05-25] MEDS: FAMOTIDINE 20 MG TAB PO SCH ×2 (08:05→21:00)
[2018-05-25] MEDS: SOD CHLORIDE 0.9% 1,000 ML IV SCH (08:09)
--- NOTE | 2018-05-25 09:06 | PN ---
Date/Time of Note Date/Time of Note DATE: 05/25/18 TIME: 09:06 Assessment/Plan VTE Prophylaxis Risk score (from Ns)>0 risk: 3 SCD applied (from Ns): Yes Pharmacological prophylaxis: LMWH Lines/Catheters IV C[facility]ter Type (from [facility] Peripheral IV Urinary Cath still in place: No Assessment/Plan Assessment/Plan 1. Acute asthma exacerbation - Pulmonology consultation - Will consult pulmonology given patient was here 1.5 months ago with similar symptoms - continue on steroids, nebs and antibiotics - monitor for improvement - o2 as needed 2. DM - A1c noted - will continue ISS and accuchecks - Novolog 70/30 added and to be given with solumedrol 3. Lactic acidosis- resolved - fluids given 4. Disposition - Continue current treatment and will need close Pulm follow up once acute exacerbation resolves Result Diagram: 05/25/18 0537 05/25/18 0538 Results 24hrs Laboratory Tests Test 05/24/18 13:54 05/24/18 13:55 05/24/18 16:59 05/24/18 18:13 White Blood Count 13.0 #H Red Blood Count 5.21 Hemoglobin 12.7 Hematocrit 39.4 Mean Corpuscular 75.6 L Volume Mean Corpuscular 24.4 L Hemoglobin Mean Corpuscular 32.2 Hemoglobin Concent Red Cell 13.9 Distribution Width Platelet Count 306 Mean Platelet Volume 9.8 Immature 0.500 H Granulocytes % Neutrophils % 55.1 Lymphocytes % 22.4 Monocytes % 6.1 Eosinophils % 15.5 H Basophils % 0.4 Nucleated Red Blood 0.0 Cells % Immature 0.060 H Granulocytes # Neutrophils # 7.2 Lymphocytes # 2.9 Monocytes # 0.8 Eosinophils # 2.0 H Basophils # 0.1 Nucleated Red Blood 0.0 Cells # Prothrombin Time 11.6 L Prothrombin Time 0.9 Ratio INR International 0.84 Normalized Ratio Activated 27.6 Partial Thromboplast Time Urine Color STRAW Urine Clarity CLEAR Urine pH 5.0 Urine Specific 1.005 [place] Urine Ketones NEGATIVE Urine Nitrite NEGATIVE Urine Bilirubin NEGATIVE Urine Urobilinogen NEGATIVE Urine Leukocyte NEGATIVE Esterase Urine Hemoglobin NEGATIVE Urine Glucose NEGATIVE Urine Total Protein NEGATIVE Sodium Level 136 Potassium Level 4.1 Chloride Level 99 Carbon Dioxide Level 26 Anion Gap 11 Blood Urea Nitrogen 13 Creatinine 0.52 Est Glomerular > 60 Filtrat Rate mL/min Glucose Level 237 H Hemoglobin A1c 12.0 H Calcium Level 9.9 Total Bilirubin 0.1 L Direct Bilirubin 0.00 Indirect Bilirubin 0.1 Aspartate Amino 18 Transf (AST/SGOT) Alanine 20 Aminotransferase (AL T/SGPT) Alkaline Phosphatase 117 Troponin I < 0.012 Total Protein 7.0 Albumin 4.5 Globulin 2.50 Albumin/Globulin 1.80 Ratio POC Venous Lactate 2.5 *H 2.6 *H Bedside Glucose 333 H Test 05/24/18 18:28 05/24/18 20:15 05/24/18 21:28 05/25/18 02:05 Lactic Acid Level 3.9 *H Bedside Glucose 446 *H 428 *H 237 H Test 05/25/18 05:37 05/25/18 05:38 05/25/18 07:52 White Blood Count 7.1 # Red Blood Count 4.70 Hemoglobin 11.6 L Hematocrit 36.0 L Mean Corpuscular 76.6 L Volume Mean Corpuscular 24.7 L Hemoglobin Mean Corpuscular 32.2 Hemoglobin Concent Red Cell 13.8 Distribution Width Platelet Count 283 Mean Platelet Volume 9.9 Immature 0.600 H Granulocytes % Neutrophils % 81.7 H Lymphocytes % 14.0 L Monocytes % 3.5 Eosinophils % 0.1 Basophils % 0.1 Nucleated Red Blood 0.0 Cells % Immature 0.040 H Granulocytes # Neutrophils # 5.8 Lymphocytes # 1.0 Monocytes # 0.3 Eosinophils # 0.0 Basophils # 0.0 Nucleated Red Blood 0.0 Cells # Lactic Acid Level 1.7 Sodium Level 138 Potassium Level 4.7 Chloride Level 105 Carbon Dioxide Level 25 Anion Gap 8 Blood Urea Nitrogen 12 Creatinine 0.47 Est Glomerular > 60 Filtrat Rate mL/min Glucose Level 227 H Calcium Level 9.7 Phosphorus Level 3.4 Magnesium Level 2.0 Thyroid Stimulating 0.140 L Hormone (TSH) Bedside Glucose 238 H Subjective 24 Hr Interval Summary Free Text/Dictation Patient is feeling better but states wheezing is worse in the am with some throat discomfort. No acute overnight events. Exam/Review of Systems Exam Vitals Vital Signs Date Temp Pulse Resp B/P (MAP) Pulse Ox O2 O2 Flow FiO2 Time Delivery Rate 05/25/18 97.9 75 16 126/60 94 Nasal 07:50 (82) Cannula 05/25/18 2.0 00:42 Intake and Output 05/24/18 05/24/18 05/25/18 1515:00 23:00 07:00 IntakeIntake Total 240 ml 800 ml BalanceBalance 240 ml 800 ml Exam General: Patient is a pleasant female, currently lying in bed, no acute distress Neck: Supple Chest: Nontender Lungs: Mild expiratory wheezing appreciated. no crackles Heart: Normal S1-S2, Regular rate and rhythm. no murmurs Abdomen: Soft , nontender, nondistended , bowel sounds are present. No guarding no rebound tenderness Extremities: Normal to inspection, no edema no cyanosis Results Results 24hrs Laboratory Tests Test 05/24/18 13:54 05/24/18 13:55 05/24/18 16:59 05/24/18 18:13 White Blood Count 13.0 #H Red Blood Count 5.21 Hemoglobin 12.7 Hematocrit 39.4 Mean Corpuscular 75.6 L Volume Mean Corpuscular 24.4 L Hemoglobin Mean Corpuscular 32.2 Hemoglobin Concent Red Cell 13.9 Distribution Width Platelet Count 306 Mean Platelet Volume 9.8 Immature 0.500 H Granulocytes % Neutrophils % 55.1 Lymphocytes % 22.4 Monocytes % 6.1 Eosinophils % 15.5 H Basophils % 0.4 Nucleated Red Blood 0.0 Cells % Immature 0.060 H Granulocytes # Neutrophils # 7.2 Lymphocytes # 2.9 Monocytes # 0.8 Eosinophils # 2.0 H Basophils # 0.1 Nucleated Red Blood 0.0 Cells # Prothrombin Time 11.6 L Prothrombin Time 0.9 Ratio INR International 0.84 Normalized Ratio Activated 27.6 Partial Thromboplast Time Urine Color STRAW Urine Clarity CLEAR Urine pH 5.0 Urine Specific 1.005 [place] Urine Ketones NEGATIVE Urine Nitrite NEGATIVE Urine Bilirubin NEGATIVE Urine Urobilinogen NEGATIVE Urine Leukocyte NEGATIVE Esterase Urine Hemoglobin NEGATIVE Urine Glucose NEGATIVE Urine Total Protein NEGATIVE Sodium Level 136 Potassium Level 4.1 Chloride Level 99 Carbon Dioxide Level 26 Anion Gap 11 Blood Urea Nitrogen 13 Creatinine 0.52 Est Glomerular > 60 Filtrat Rate mL/min Glucose Level 237 H Hemoglobin A1c 12.0 H Calcium Level 9.9 Total Bilirubin 0.1 L Direct Bilirubin 0.00 Indirect Bilirubin 0.1 Aspartate Amino 18 Transf (AST/SGOT) Alanine 20 Aminotransferase (AL T/SGPT) Alkaline Phosphatase 117 Troponin I < 0.012 Total Protein 7.0 Albumin 4.5 Globulin 2.50 Albumin/Globulin 1.80 Ratio POC Venous Lactate 2.5 *H 2.6 *H Bedside Glucose 333 H Test 05/24/18 18:28 05/24/18 20:15 05/24/18 21:28 05/25/18 02:05 Lactic Acid Level 3.9 *H Bedside Glucose 446 *H 428 *H 237 H Test 05/25/18 05:37 05/25/18 05:38 05/25/18 07:52 White Blood Count 7.1 # Red Blood Count 4.70 Hemoglobin 11.6 L Hematocrit 36.0 L Mean Corpuscular 76.6 L Volume Mean Corpuscular 24.7 L Hemoglobin Mean Corpuscular 32.2 Hemoglobin Concent Red Cell 13.8 Distribution Width Platelet Count 283 Mean Platelet Volume 9.9 Immature 0.600 H Granulocytes % Neutrophils % 81.7 H Lymphocytes % 14.0 L Monocytes % 3.5 Eosinophils % 0.1 Basophils % 0.1 Nucleated Red Blood 0.0 Cells % Immature 0.040 H Granulocytes # Neutrophils # 5.8 Lymphocytes # 1.0 Monocytes # 0.3 Eosinophils # 0.0 Basophils # 0.0 Nucleated Red Blood 0.0 Cells # Lactic Acid Level 1.7 Sodium Level 138 Potassium Level 4.7 Chloride Level 105 Carbon Dioxide Level 25 Anion Gap 8 Blood Urea Nitrogen 12 Creatinine 0.47 Est Glomerular > 60 Filtrat Rate mL/min Glucose Level 227 H Calcium Level 9.7 Phosphorus Level 3.4 Magnesium Level 2.0 Thyroid Stimulating 0.140 L Hormone (TSH) Bedside Glucose 238 H Medications Medication Current Medications Guaifenesin (Mucinex) 600 mg BID PRN PO COUGH; Start 05/24/18 at 17:00 Fluticasone/ Vilanterol (Breo Ellipta 100-25 Mcg Inh) 1 inh DAILY INH ; Start 05/25/18 at 09:00 Albuterol (Proventil 0.083% (Neb)) 2.5 mg Q2H RESP THERAPY PRN HHN SHORTNESS OF BREATH; Start 05/24/18 at 17:00 Albuterol/ Ipratropium (Duoneb) 3 ml Q6HWA RESP THERAPY HHN Last administered on 05/24/18at 20:51; Admin Dose 3 ML; Start 05/24/18 at 20:00 IV Flush (NS 3 ml) 3 ml PER PROTOCOL IV ; Start 05/24/18 at 17:00 Ondansetron HCl (Zofran Inj) 4 mg Q6H PRN IV NAUSEA/VOMITING; Start 05/24/18 at 17:00 Acetaminophen (Tylenol Tab) 650 mg Q6H PRN PO .PAIN 1-3 OR TEMP Last administered on 05/25/18at 08:05; Admin Dose 650 MG; Start 05/24/18 at 17:00 Docusate Sodium (Colace) 100 mg Q12H PRN PO .CONSTIPATION; Start 05/24/18 at 17:00 Magnesium Hydroxide (Milk Of Mag) 30 ml DAILY PRN PO .CONSTIPATION; Start at 17:00 Famotidine (Pepcid) 20 mg Q12 PO Last administered on 05/25/18at 08:05; Admin Dose 20 MG; Start 05/24/18 at 21:00 Enoxaparin Sodium (Lovenox) 40 mg DAILY SC Last administered on 05/25/18at 08:05; Admin Dose 40 MG; Start 05/25/18 at 09:00 Methylprednisolone Sodium Succinate (Solu-Medrol) 40 mg Q8 IV Last administered on 05/25/18at 06:19; Admin Dose 40 MG; Start 05/24/18 at 22:00 Ceftriaxone Sodium 50 ml @ 100 mls/hr Q24H IVPB ; Start 05/25/18 at 14:00 Azithromycin 250 ml @ 250 mls/hr Q24H IVPB ; Start 05/25/18 at 14:00 Insulin Aspart Prota 70%/Aspart 30% (Novolog Mix (70/ 30) Flexpen) 10 unit TID SC Last administered on 05/25/18at 08:04; Admin Dose 10 UNIT; Start 05/24/18 at 21:00 Miscellaneous Information 1 ea NOTE XX ; Start 05/24/18 at 17:30 Glucose (Glutose) 15 gm Q15M PRN PO DECREASED GLUCOSE; Start 05/24/18 at 17:30 Glucose (Glutose) 22.5 gm Q15M PRN PO DECREASED GLUCOSE; Start 05/24/18 at 17:30 Dextrose (D50w Syringe) 25 ml Q15M PRN IV DECREASED GLUCOSE; Start 05/24/18 at 17:30 Dextrose (D50w Syringe) 50 ml Q15M PRN IV DECREASED GLUCOSE; Start 05/24/18 at 17:30 Glucagon (Glucagen) 1 mg Q15M PRN IM DECREASED GLUCOSE; Start 05/24/18 at 17:30 Glucose (Glutose) 15 gm Q15M PRN BUCCAL DECREASED GLUCOSE; Start 05/24/18 at 17:30 Insulin Aspart (Novolog Insulin Pen) NOVOLOG *MODERATE* ALGORITHM WITH MEALS BEDTIME SC Last administered on 05/25/18 08:04; Admin Dose 6 UNIT; Start 05/24/18 at 21:00 Sodium Chloride 1,000 ml @ 50 mls/hr Q20H IV Last administered on 05/25/18at 08:09; Admin Dose 50 MLS/HR; Start 05/24/18 at 19:30 CAROLA NICHOLE MD May 25, 2018 09:06
[2018-05-25] MEDS: FLUTICASONE/VILANTEROL 100-25 INH SCH (09:36)
[2018-05-25] MEDS: metFORMIN 500 MG TAB PO SCH ×2 (09:37→17:33)
--- NOTE | 2018-05-25 13:48 | CONS ---
DATE OF ADMISSION: 05/24/2018 DATE OF CONSULTATION: TYPE OF CONSULTATION: Pulmonary. REASON FOR CONSULTATION: Shortness of breath. Thank you, Dr. Herrera, for this consultation. HISTORY OF PRESENT ILLNESS: This is a pleasant 57-year-old lady with a history of asthma who present s with several-day history of increasing shortness of breath, orthopnea, PND, cough, but no fever, no chills, no chest pain or palpitations. She is a nonsmoker, has had a long history of asthma which h as been poorly controlled. PAST MEDICAL HISTORY: Includes diabetes mellitus. MEDICATIONS: Per chart. ALLERGIES: NONE. SOCIAL HISTORY: Nonsmoker, no alcohol, no history of drug use. FAMILY HISTORY: Noncontributory. REVIEW OF SYSTEMS: A 12-point review of systems was negative, other than the mentioned above. PHYSICAL EXAMINATION: GENERAL: Well-nourished, well-developed lady, comfortable at rest, in no acute distress. VITAL SIGNS: Currently afebrile, pulse is 75, blood pressure 126/60, O2 saturation 96% on 2 liters n epifanio cannula. NECK: Supple. No JVD or lymphadenopathy. CARDIAC: S1, S2. No added sounds or murmur. CHEST: She had bilateral expiratory wheezing. ABDOMEN: Soft, nontender. No guarding or rebound. EXTREMITIES: No cyanosis, clubbing or edema. NEUROLOGIC: Grossly intact. No focal deficits. LABORATORIES: White count now 7.1, hemoglobin 11.6, platelets of 283. Chemistry within normal limit s except for elevated blood glucose. INR was within normal limits. DIAGNOSTIC DATA: Chest x-ray demonstrated no significant cardiopulmonary disease. IMPRESSION AND PLAN: Acute exacerbation of asthma likely moderate persistent disease. The patient will require: 1. Steroid taper. 2. Bronchodilators. 3. Outpatient long-acting beta agonist and inhaled corticosteroid. 4. Outpatient pulmonary function testing also and workup of possible allergies. Dictated By: SAMPSON BECKFORD MD SV/DAVIS Conf#: [id number] DID#: [id number] CC: CAROLA NICHOLE MD;*EndCC*
[2018-05-25] MEDS: CEFTRIAXONE 1 GM/50 ML (PMX) 50 ML IVPB SCH (14:09)
[2018-05-25 14:20] VITALS: BP 125/57; PULSE 91; RESP 16
[2018-05-25] MEDS: AZITHROMYCIN 500MG/NS (PMX) 250 ML IVPB SCH (16:43)
[2018-05-25] MEDS ORDERED: INSULIN ASPART [NOVOLOG] 3 ML PEN SC STA (17:37)
[2018-05-25 20:02] VITALS: BP 121/63; PULSE 87; RESP 19
[2018-05-26 02:00] VITALS: BP 118/57; PULSE 80; RESP 18
[2018-05-26] MEDS: ALBUTEROL/IPRATROPIUM (NEB) 3 ML AMP HHN SCH ×3 (07:40→20:17)
[2018-05-26] MEDS: METHYLPREDNISOLONE 40 MG INJ IV SCH ×2 (07:50→14:20)
[2018-05-26] MEDS: INSULIN ASP PROT/ASPART (70/30) PEN SC SCH ×2 (07:51→14:21)
[2018-05-26] MEDS: metFORMIN 500 MG TAB PO SCH ×2 (07:52→17:17)
[2018-05-26] MEDS: INSULIN ASPART [NOVOLOG] 3 ML PEN SC SCH ×4 (07:53→21:15)
[2018-05-26 07:55] VITALS: BP 129/98; PULSE 91; RESP 18
[2018-05-26] MEDS: FLUTICASONE/VILANTEROL 100-25 INH SCH (08:01)
[2018-05-26] MEDS: FAMOTIDINE 20 MG TAB PO SCH ×2 (08:01→21:18)
[2018-05-26] MEDS: ENOXAPARIN 40 MG/0.4 ML SYG SC SCH (08:02)
[2018-05-26] MEDS: CEFTRIAXONE 1 GM/50 ML (PMX) 50 ML IVPB SCH (14:20)
[2018-05-26 14:45] VITALS: BP 144/64; PULSE 98; RESP 18
[2018-05-26] MEDS: AZITHROMYCIN 500MG/NS (PMX) 250 ML IVPB SCH (14:55)
--- NOTE | 2018-05-26 15:43 | CONS ---
Consult Date/Type/Reason Admit Date/Time May 24, 2018 at 15:53 Initial Consult Date Type of Consult Pulmonary Date/Time of Note DATE: 05/26/18 TIME: 15:35 Subjective Remains stable, improving resp status. Objective Vital Signs Date Temp Pulse Resp B/P (MAP) Pulse Ox O2 O2 Flow FiO2 Time Delivery Rate 05/26/18 97.7 98 18 144/64 93 Room Air 14:45 (90) 05/26/18 21 14:09 05/25/18 2.0 13:07 Intake and Output 05/25/18 05/25/18 05/26/18 1515:00 23:00 07:00 IntakeIntake Total 1250 ml 1800 ml BalanceBalance 1250 ml 1800 ml Exam PHYSICAL EXAMINATION: GENERAL: Well-nourished, well-developed lady, comfortable at rest, in no acute distress. VITAL SIGNS: NECK: Supple. No JVD or lymphadenopathy. CARDIAC: S1, S2. No added sounds or murmur. CHEST: She had bilateral expiratory wheezing. ABDOMEN: Soft, nontender. No guarding or rebound. EXTREMITIES: No cyanosis, clubbing or edema. NEUROLOGIC: Grossly intact. No focal deficits. Vent Setting Fraction of Inspired Oxygen pe: 21 Results/Medications Result Diagram: 05/25/18 0537 05/25/18 0538 Results 24 hrs Laboratory Tests Test 05/25/18 17:29 05/25/18 20:59 05/26/18 02:23 05/26/18 07:49 Bedside Glucose 312 H 211 234 H 253 H Test 05/26/18 12:13 05/26/18 14:19 Bedside Glucose 244 H 347 H Medications Current Medications Guaifenesin (Mucinex) 600 mg BID PRN PO COUGH Last administered on 05/25/18at 12:00; Admin Dose 600 MG; Start 05/24/18 at 17:00 Fluticasone/ Vilanterol (Breo Ellipta 100-25 Mcg Inh) 1 inh DAILY INH Last administered on 05/26/18at 08:01; Admin Dose 1 INH; Start 05/25/18 at 09:00 Albuterol (Proventil 0.083% (Neb)) 2.5 mg Q2H RESP THERAPY PRN HHN SHORTNESS OF BREATH; Start 05/24/18 at 17:00 Albuterol/ Ipratropium (Duoneb) 3 ml Q6HWA RESP THERAPY HHN Last administered on 05/26/18at 14:09; Admin Dose 3 ML; Start 05/24/18 at 20:00 IV Flush (NS 3 ml) 3 ml PER PROTOCOL IV ; Start 05/24/18 at 17:00 Ondansetron HCl (Zofran Inj) 4 mg Q6H PRN IV NAUSEA/VOMITING; Start 05/24/18 at 17:00 Acetaminophen (Tylenol Tab) 650 mg Q6H PRN PO .PAIN 1-3 OR TEMP Last administered on 05/25/18at 08:05; Admin Dose 650 MG; Start 05/24/18 at 17:00 Docusate Sodium (Colace) 100 mg Q12H PRN PO .CONSTIPATION; Start 05/24/18 at 17:00 Magnesium Hydroxide (Milk Of Mag) 30 ml DAILY PRN PO .CONSTIPATION; Start 05/24/18 at 17:00 Famotidine (Pepcid) 20 mg Q12 PO Last administered on 05/26/18at 08:01; Admin Dose 20 MG; Start 05/24/18 at 21:00 Enoxaparin Sodium (Lovenox) 40 mg DAILY SC Last administered on 05/26/18at 08:02; Admin Dose 40 MG; Start 05/25/18 at 09:00 Methylprednisolone Sodium Succinate (Solu-Medrol) 40 mg Q8 IV Last administered on 05/26/18at 14:20; Admin Dose 40 MG; Start 05/24/18 at 22:00 Ceftriaxone Sodium 50 ml @ 100 mls/hr Q24H IVPB Last administered on 05/26/18at 14:20; Admin Dose 100 MLS/HR; Start 05/25/18 at 14:00 Azithromycin 250 ml @ 250 mls/hr Q24H IVPB Last administered on 05/26/18at 14:55; Admin Dose 250 MLS/HR; Start 05/25/18 at 14:00 Miscellaneous Information 1 ea NOTE XX ; Start 05/24/18 at 17:30 Glucose (Glutose) 15 gm Q15M PRN PO DECREASED GLUCOSE; Start 05/24/18 at 17:30 Glucose (Glutose) 22.5 gm Q15M PRN PO DECREASED GLUCOSE; Start 05/24/18 at 17:30 Dextrose (D50w Syringe) 25 ml Q15M PRN IV DECREASED GLUCOSE; Start 05/24/18 at 17:30 Dextrose (D50w Syringe) 50 ml Q15M PRN IV DECREASED GLUCOSE; Start 05/24/18 at 17:30 Glucagon (Glucagen) 1 mg Q15M PRN IM DECREASED GLUCOSE; Start 05/24/18 at 17:30 Glucose (Glutose) 15 gm Q15M PRN BUCCAL DECREASED GLUCOSE; Start 05/24/18 at 17:30 Insulin Aspart (Novolog Insulin Pen) NOVOLOG *MODERATE* ALGORITHM WITH MEALS BEDTIME SC Last administered on 05/26/18at 12:14; Admin Dose 6 UNIT; Start 05/24/18 at 21:00 Metformin HCl (Glucophage) 1,000 mg WITH BREAKFAST DINNE PO Last administered on 05/26/18at 07:52; Admin Dose 1,000 MG; Start 05/25/18 at 09:30 Insulin Aspart Prota 70%/Aspart 30% (Novolog Mix (70/ 30) Flexpen) 10 unit Q8 SC Last administered on 05/26/18at 14:21; Admin Dose 10 UNIT; Start 05/26/18 at 06:00 Assessment/Plan Hospital Course (Demo Recall) IMPRESSION 1. Acute exacerbation of asthma likely moderate persistent disease. Plan: 1. Steroid taper. 2. Bronchodilators. 3. Outpatient long-acting beta agonist and inhaled corticosteroid. 4. Outpatient pulmonary function testing also and workup of possible allergies. hopefully dc tomorrow. SAMPSON BECKFORD MD, [facility] May 26, 2018 15:42
--- NOTE | 2018-05-26 16:05 | PN ---
Date/Time of Note Date/Time of Note DATE: 05/26/18 TIME: 16:02 Assessment/Plan VTE Prophylaxis Risk score (from Nsg)>0 risk: 2 SCD applied (from Nsg): Yes Pharmacological prophylaxis: LMWH Lines/Catheters IV Catheter Type (from Nrsg): Peripheral IV Urinary Cath still in place: No Assessment/Plan Assessment/Plan 1. Acute asthma exacerbation- improving - Pulmonology consultation appreciated and will need to follow up as outpatient for PFT and allergy testing - will change to PO antibiotics and steroids - continue current bronchodilators - monitor for improvement - o2 as needed 2. DM - A1c noted - will continue ISS and accuchecks - Novolog 70/30 added and to be given with solumedrol 3. Lactic acidosis- resolved - fluids given 4. Disposition - Will change to PO antibiotics and steroids. If continues to improve, will d/c home in next 24-48 hours Result Diagram: 05/25/18 0537 05/25/18 0538 Results 24hrs Laboratory Tests Test 05/25/18 17:29 05/25/18 20:59 05/26/18 02:23 05/26/18 07:49 Bedside Glucose 312 H 211 234 H 253 H Test 05/26/18 12:13 05/26/18 14:19 Bedside Glucose 244 H 347 H Subjective 24 Hr Interval Summary Free Text/Dictation Patient states shes feeling better but with notable wheezing anteriorly in throat in the am. Still with chest congestion and post nasal drip. Exam/Review of Systems Exam Vitals Vital Signs Date Temp Pulse Resp B/P (MAP) Pulse Ox O2 O2 Flow FiO2 Time Delivery Rate 05/26/18 97.7 98 18 144/64 93 Room Air 14:45 (90) 05/26/18 21 14:09 05/25/18 2.0 13:07 Intake and Output 05/25/18 05/25/18 05/26/18 1515:00 23:00 07:00 IntakeIntake Total 1250 ml 1800 ml BalanceBalance 1250 ml 1800 ml Exam General: Patient is a pleasant female, currently lying in bed, no acute distress Neck: Supple Chest: Nontender Lungs: Mild expiratory wheezing appreciated, worse at bases. no crackles Heart: Normal S1-S2, Regular rate and rhythm. no murmurs Abdomen: Soft , nontender, nondistended , bowel sounds are present. No guarding no rebound tenderness Extremities: Normal to inspection, no edema no cyanosis Results Results 24hrs Laboratory Tests Test 05/25/18 17:29 05/25/18 20:59 05/26/18 02:23 05/26/18 07:49 Bedside Glucose 312 H 211 234 H 253 H Test 05/26/18 12:13 05/26/18 14:19 Bedside Glucose 244 H 347 H Medications Medication Current Medications Guaifenesin (Mucinex) 600 mg BID PRN PO COUGH Last administered on 05/25/18at 12:00; Admin Dose 600 MG; Start 05/24/18 at 17:00 Fluticasone/ Vilanterol (Breo Ellipta 100-25 Mcg Inh) 1 inh DAILY INH Last administered on 05/26/18at 08:01; Admin Dose 1 INH; Start 05/25/18 at 09:00 Albuterol (Proventil 0.083% (Neb)) 2.5 mg Q2H RESP THERAPY PRN HHN SHORTNESS OF BREATH; Start 05/24/18 at 17:00 Albuterol/ Ipratropium (Duoneb) 3 ml Q6HWA RESP THERAPY HHN Last administered on 05/26/18at 14:09; Admin Dose 3 ML; Start 05/24/18 at 20:00 IV Flush (NS 3 ml) 3 ml PER PROTOCOL IV ; Start 05/24/18 at 17:00 Ondansetron HCl (Zofran Inj) 4 mg Q6H PRN IV NAUSEA/VOMITING; Start 05/24/18 at 17:00 Acetaminophen (Tylenol Tab) 650 mg Q6H PRN PO .PAIN 1-3 OR TEMP Last administered on 05/25/18at 08:05; Admin Dose 650 MG; Start 05/24/18 at 17:00 Docusate Sodium (Colace) 100 mg Q12H PRN PO .CONSTIPATION; Start 05/24/18 at 17:00 Magnesium Hydroxide (Milk Of Mag) 30 ml DAILY PRN PO .CONSTIPATION; Start 05/24/18 at 17:00 Famotidine (Pepcid) 20 mg Q12 PO Last administered on 05/26/18at 08:01; Admin Dose 20 MG; Start 05/24/18 at 21:00 Enoxaparin Sodium (Lovenox) 40 mg DAILY SC Last administered on 05/26/18 08:02; Admin Dose 40 MG; Start 05/25/18 at 09:00 Methylprednisolone Sodium Succinate (Solu-Medrol) 40 mg Q8 IV Last administered on 05/26/18at 14:20; Admin Dose 40 MG; Start 05/24/18 at 22:00 Ceftriaxone Sodium 50 ml @ 100 mls/hr Q24H IVPB Last administered on 05/26/18at 14:20; Admin Dose 100 MLS/HR; Start 05/25/18 at 14:00 Azithromycin 250 ml @ 250 mls/hr Q24H IVPB Last administered on 05/26/18at 14:55; Admin Dose 250 MLS/HR; Start 05/25/18 at 14:00 Miscellaneous Information 1 ea NOTE XX ; Start 05/24/18 at 17:30 Glucose (Glutose) 15 gm Q15M PRN PO DECREASED GLUCOSE; Start 05/24/18 at 17:30 Glucose (Glutose) 22.5 gm Q15M PRN PO DECREASED GLUCOSE; Start 05/24/18 at 17:30 Dextrose (D50w Syringe) 25 ml Q15M PRN IV DECREASED GLUCOSE; Start 05/24/18 at 17:30 Dextrose (D50w Syringe) 50 ml Q15M PRN IV DECREASED GLUCOSE; Start 05/24/18 at 17:30 Glucagon (Glucagen) 1 mg Q15M PRN IM DECREASED GLUCOSE; Start 05/24/18 at 17:30 Glucose (Glutose) 15 gm Q15M PRN BUCCAL DECREASED GLUCOSE; Start 05/24/18 at 17:30 Insulin Aspart (Novolog Insulin Pen) NOVOLOG *MODERATE* ALGORITHM WITH MEALS BEDTIME SC Last administered on 05/26/18at 12:14; Admin Dose 6 UNIT; Start 05/24/18 at 21:00 Metformin HCl (Glucophage) 1,000 mg WITH BREAKFAST DINNE PO Last administered on 05/26/18at 07:52; Admin Dose 1,000 MG; Start 05/25/18 at 09:30 Insulin Aspart Prota 70%/Aspart 30% (Novolog Mix (70/ 30) Flexpen) 10 unit Q8 SC Last administered on 05/26/18at 14:21; Admin Dose 10 UNIT; Start 05/26/18 at 06:00 CAROLA NICHOLE MD May 26, 2018 16:05
[2018-05-26 20:00] VITALS: BP 139/68; PULSE 77; RESP 18
[2018-05-26] MEDS: GUAIFENESIN LA 600 MG TABSR PO SCH (21:17)
[2018-05-26] MEDS: MONTELUKAST 10 MG TAB PO SCH (21:17)
[2018-05-26] MEDS: AMOXICILLIN/CLAV 500 MG TAB PO SCH (21:17)
[2018-05-26] MEDS: FLUTICASONE 0.05% 16 GM NAS SPRAY NASAL SCH (21:17)
[2018-05-27 02:00] VITALS: BP 104/56; PULSE 76; RESP 18
[2018-05-27] MEDS: ALBUTEROL/IPRATROPIUM (NEB) 3 ML AMP HHN SCH ×3 (07:39→20:29)
[2018-05-27 08:08] VITALS: BP 132/70; PULSE 63; RESP 16
[2018-05-27] MEDS: FLUTICASONE 0.05% 16 GM NAS SPRAY NASAL SCH ×2 (08:39→21:01)
[2018-05-27] MEDS: FAMOTIDINE 20 MG TAB PO SCH ×2 (08:39→21:01)
[2018-05-27] MEDS: FLUTICASONE/VILANTEROL 100-25 INH SCH (08:39)
[2018-05-27] MEDS: GUAIFENESIN LA 600 MG TABSR PO SCH ×2 (08:39→21:01)
[2018-05-27] MEDS: predniSONE 20 MG TAB PO SCH (08:39)
[2018-05-27] MEDS: INSULIN ASPART [NOVOLOG] 3 ML PEN SC SCH ×4 (08:41→21:00)
[2018-05-27] MEDS: ENOXAPARIN 40 MG/0.4 ML SYG SC SCH (08:42)
[2018-05-27] MEDS: metFORMIN 500 MG TAB PO SCH ×2 (08:44→17:40)
[2018-05-27] MEDS: AMOXICILLIN/CLAV 500 MG TAB PO SCH ×2 (09:05→21:01)
--- NOTE | 2018-05-27 09:50 | PN ---
Date/Time of Note Date/Time of Note DATE: 05/27/18 TIME: 09:49 Assessment/Plan VTE Prophylaxis Risk score (from Ns)>0 risk: 2 SCD applied (from Nsg): Yes Pharmacological prophylaxis: LMWH Lines/Catheters IV Catheter Type (from Nrs): Peripheral IV Urinary Cath still in place: No Assessment/Plan Assessment/Plan 1. Acute asthma exacerbation - Still with diffuse wheezing - Desaturated overnight and did well on supplemental O2. States felt better in the am after put on O2 - Pulmonology consultation appreciated and will need to follow up as outpatient for PFT and allergy testing - Steroid taper - continue current bronchodilators - o2 as needed - added Montelukast qhs 2. DM - A1c noted - will continue ISS and accuchecks 3. Lactic acidosis- resolved - fluids given 4. Disposition - Still with diffuse wheezing. Continue current care Result Diagram: 05/25/18 0537 05/25/18 0538 Results 24hrs Laboratory Tests Test 05/26/18 12:13 05/26/18 14:19 05/26/18 17:14 05/26/18 21:12 Bedside Glucose 244 H 347 H 331 H 223 H Test 05/27/18 03:33 05/27/18 08:15 Bedside Glucose 241 H 250 H Subjective 24 Hr Interval Summary Free Text/Dictation Patient still with diffuse wheezing and states she notices when she used oxygen overnight she feels better in the am. Exam/Review of Systems Exam Vitals Vital Signs Date Temp Pulse Resp B/P (MAP) Pulse Ox O2 O2 Flow FiO2 Time Delivery Rate 05/27/18 98.2 63 16 132/70 98 08:08 (90) 05/27/18 Nasal 2.0 07:49 Cannula 05/26/18 21 20:18 Intake and Output 05/26/18 05/26/18 05/27/18 1515:00 23:00 07:00 IntakeIntake Total 750 ml 1190 ml 300 ml BalanceBalance 750 ml 1190 ml 300 ml Exam General: Patient is a pleasant female, currently lying in bed, no acute distress Neck: Supple Chest: Nontender Lungs: Diffuse expiratory wheezing appreciated, No crackles Heart: Normal S1-S2, Regular rate and rhythm. no murmurs Abdomen: Soft , nontender, nondistended , bowel sounds are present. No guarding no rebound tenderness Extremities: Normal to inspection, no edema no cyanosis Results Results 24hrs Laboratory Tests Test 05/26/18 12:13 05/26/18 14:19 05/26/18 17:14 05/26/18 21:12 Bedside Glucose 244 H 347 H 331 H 223 H Test 05/27/18 03:33 05/27/18 08:15 Bedside Glucose 241 H 250 H Medications Medication Current Medications Fluticasone/ Vilanterol (Breo Ellipta 100-25 Mcg Inh) 1 inh DAILY INH Last administered on 05/27/18 08:39; Admin Dose 1 INH; Start 05/25/18 at 09:00 Albuterol (Proventil 0.083% (Neb)) 2.5 mg Q2H RESP THERAPY PRN HHN SHORTNESS OF BREATH; Start 05/24/18 at 17:00 Albuterol/ Ipratropium (Duoneb) 3 ml Q6HWA RESP THERAPY HHN Last administered on 05/27/18 07:39; Admin Dose 3 ML; Start 05/24/18 at 20:00 IV Flush (NS 3 ml) 3 ml PER PROTOCOL IV ; Start 05/24/18 at 17:00 Ondansetron HCl (Zofran Inj) 4 mg Q6H PRN IV NAUSEA/VOMITING; Start 05/24/18 at 17:00 Acetaminophen (Tylenol Tab) 650 mg Q6H PRN PO .PAIN 1-3 OR TEMP Last administered on 05/25/18at 08:05; Admin Dose 650 MG; Start 05/24/18 at 17:00 Docusate Sodium (Colace) 100 mg Q12H PRN PO .CONSTIPATION; Start 05/24/18 at 17:00 Magnesium Hydroxide (Milk Of Mag) 30 ml DAILY PRN PO .CONSTIPATION; Start 05/24/18 at 17:00 Famotidine (Pepcid) 20 mg Q12 PO Last administered on 05/27/18 08:39; Admin Dose 20 MG; Start 05/24/18 at 21:00 Enoxaparin Sodium (Lovenox) 40 mg DAILY SC Last administered on 05/27/18 08:42; Admin Dose 40 MG; Start 05/25/18 at 09:00 Miscellaneous Information 1 ea NOTE XX ; Start 05/24/18 at 17:30 Glucose (Glutose) 15 gm Q15M PRN PO DECREASED GLUCOSE; Start 05/24/18 at 17:30 Glucose (Glutose) 22.5 gm Q15M PRN PO DECREASED GLUCOSE; Start 05/24/18 at 17:30 Dextrose (D50w Syringe) 25 ml Q15M PRN IV DECREASED GLUCOSE; Start 05/24/18 at 17:30 Dextrose (D50w Syringe) 50 ml Q15M PRN IV DECREASED GLUCOSE; Start 05/24/18 at 17:30 Glucagon (Glucagen) 1 mg Q15M PRN IM DECREASED GLUCOSE; Start 05/24/18 at 17:30 Glucose (Glutose) 15 gm Q15M PRN BUCCAL DECREASED GLUCOSE; Start 05/24/18 at 17:30 Insulin Aspart (Novolog Insulin Pen) NOVOLOG *MODERATE* ALGORITHM WITH MEALS BEDTIME SC Last administered on 05/27/18 08:41; Admin Dose 6 UNIT; Start 05/24/18 at 21:00 Metformin HCl (Glucophage) 1,000 mg WITH BREAKFAST DINNE PO Last administered on 05/27/18 08:44; Admin Dose 1,000 MG; Start 05/25/18 at 09:30 Guaifenesin (Mucinex) 600 mg BID PO Last administered on 05/27/18 08:39; Admin Dose 600 MG; Start 05/26/18 at 21:00 Fluticasone Propionate (Flonase 0.05% Nasal) 1 spray BID NASAL Last administered on 05/27/18 08:39; Admin Dose 1 SPRAY; Start 05/26/18 at 21:00 Montelukast Sodium (Singulair) 10 mg HS PO Last administered on 05/26/18 21:17; Admin Dose 10 MG; Start 05/26/18 at 21:00 Prednisone (Prednisone) 60 mg DAILY PO Last administered on 05/27/18 08:39; Admin Dose 60 MG; Start 05/27/18 at 09:00 Amoxicillin/ Clavulanate Potassium (Augmentin) 500 mg BID PO Last administered on 05/27/18 09:05; Admin Dose 500 MG; Start 05/26/18 at 21:00 CAROLA NICHOLE MD May 27, 2018 09:49
--- NOTE | 2018-05-27 11:55 | CONS ---
Consult Date/Type/Reason Admit Date/Time May 24, 2018 at 15:53 Initial Consult Date Type of Consult Pulmonary Date/Time of Note DATE: 05/27/18 TIME: 11:54 Subjective Still with significant wheezing. Although slowly improving. Objective Vital Signs Date Temp Pulse Resp B/P (MAP) Pulse Ox O2 O2 Flow FiO2 Time Delivery Rate 05/27/18 98.2 63 16 132/70 98 08:08 (90) 05/27/18 Nasal 2.0 07:49 Cannula 05/26/18 21 20:18 Intake and Output 05/26/18 05/26/18 05/27/18 1515:00 23:00 07:00 IntakeIntake Total 750 ml 1190 ml 300 ml BalanceBalance 750 ml 1190 ml 300 ml Exam PHYSICAL EXAMINATION: GENERAL: Well-nourished, well-developed lady, comfortable at rest, in no acute distress. VITAL SIGNS: NECK: Supple. No JVD or lymphadenopathy. CARDIAC: S1, S2. No added sounds or murmur. CHEST: She had bilateral expiratory wheezing. ABDOMEN: Soft, nontender. No guarding or rebound. EXTREMITIES: No cyanosis, clubbing or edema. NEUROLOGIC: Grossly intact. No focal deficits. Vent Setting Fraction of Inspired Oxygen pe: 21 Results/Medications Result Diagram: 05/25/18 0537 05/25/18 0538 Results 24 hrs Laboratory Tests Test 05/26/18 12:13 05/26/18 14:19 05/26/18 17:14 05/26/18 21:12 Bedside Glucose 244 H 347 H 331 H 223 H Test 05/27/18 03:33 05/27/18 08:15 Bedside Glucose 241 H 250 H Medications Current Medications Fluticasone/ Vilanterol (Breo Ellipta 100-25 Mcg Inh) 1 inh DAILY INH Last administered on 05/27/18at 08:39; Admin Dose 1 INH; Start 05/25/18 at 09:00 Albuterol (Proventil 0.083% (Neb)) 2.5 mg Q2H RESP THERAPY PRN HHN SHORTNESS OF BREATH; Start 05/24/18 at 17:00 Albuterol/ Ipratropium (Duoneb) 3 ml Q6HWA RESP THERAPY HHN Last administered on 05/27/18at 07:39; Admin Dose 3 ML; Start 05/24/18 at 20:00 IV Flush (NS 3 ml) 3 ml PER PROTOCOL IV ; Start 05/24/18 at 17:00 Ondansetron HCl (Zofran Inj) 4 mg Q6H PRN IV NAUSEA/VOMITING; Start 05/24/18 at 17:00 Acetaminophen (Tylenol Tab) 650 mg Q6H PRN PO .PAIN 1-3 OR TEMP Last administered on 05/25/18at 08:05; Admin Dose 650 MG; Start 05/24/18 at 17:00 Docusate Sodium (Colace) 100 mg Q12H PRN PO .CONSTIPATION; Start 05/24/18 at 17:00 Magnesium Hydroxide (Milk Of Mag) 30 ml DAILY PRN PO .CONSTIPATION; Start 05/24/18 at 17:00 Famotidine (Pepcid) 20 mg Q12 PO Last administered on 05/27/18at 08:39; Admin Dose 20 MG; Start 05/24/18 at 21:00 Enoxaparin Sodium (Lovenox) 40 mg DAILY SC Last administered on 05/27/18at 08:42; Admin Dose 40 MG; Start 05/25/18 at 09:00 Miscellaneous Information 1 ea NOTE XX ; Start 05/24/18 at 17:30 Glucose (Glutose) 15 gm Q15M PRN PO DECREASED GLUCOSE; Start 05/24/18 at 17:30 Glucose (Glutose) 22.5 gm Q15M PRN PO DECREASED GLUCOSE; Start 05/24/18 at 17:30 Dextrose (D50w Syringe) 25 ml Q15M PRN IV DECREASED GLUCOSE; Start 05/24/18 at 17:30 Dextrose (D50w Syringe) 50 ml Q15M PRN IV DECREASED GLUCOSE; Start 05/24/18 at 17:30 Glucagon (Glucagen) 1 mg Q15M PRN IM DECREASED GLUCOSE; Start 05/24/18 at 17:30 Glucose (Glutose) 15 gm Q15M PRN BUCCAL DECREASED GLUCOSE; Start 05/24/18 at 17:30 Insulin Aspart (Novolog Insulin Pen) NOVOLOG *MODERATE* ALGORITHM WITH MEALS BEDTIME SC Last administered on 05/27/18at 08:41; Admin Dose 6 UNIT; Start 05/24/18 at 21:00 Metformin HCl (Glucophage) 1,000 mg WITH BREAKFAST DINNE PO Last administered on 05/27/18 08:44; Admin Dose 1,000 MG; Start 05/25/18 at 09:30 Guaifenesin (Mucinex) 600 mg BID PO Last administered on 05/27/18 08:39; Admin Dose 600 MG; Start 05/26/18 at 21:00 Fluticasone Propionate (Flonase 0.05% Nasal) 1 spray BID NASAL Last adminis tered on 05/27/18 08:39; Admin Dose 1 SPRAY; Start 05/26/18 at 21:00 Montelukast Sodium (Singulair) 10 mg HS PO Last administered on 05/26/18 21:17; Admin Dose 10 MG; Start 05/26/18 at 21:00 Prednisone (Prednisone) 60 mg DAILY PO Last administered on 05/27/18 08:39; Admin Dose 60 MG; Start 05/27/18 at 09:00 Amoxicillin/ Clavulanate Potassium (Augmentin) 500 mg BID PO Last administered on 05/27/18 09:05; Admin Dose 500 MG; Start 05/26/18 at 21:00 Assessment/Plan Hospital Course (Demo Recall) IMPRESSION 1. Acute exacerbation of asthma likely moderate persistent disease. Plan: 1. Steroid taper. 2. Bronchodilators. 3. Outpatient long-acting beta agonist and inhaled corticosteroid. 4. Outpatient pulmonary function testing also and workup of possible allergies. Discussed with staff encouraged to ambulate. Not stable for discharge yet SAMPSON BECKFORD MD, [facility] May 27, 2018 11:55
[2018-05-27 14:19] VITALS: BP 133/65; PULSE 89; RESP 18
[2018-05-27] MEDS ORDERED: INSULIN ASPART [NOVOLOG] 3 ML PEN SC ONE (17:30)
[2018-05-27 20:39] VITALS: BP 127/65; PULSE 76; RESP 18
[2018-05-27] MEDS: MONTELUKAST 10 MG TAB PO SCH (21:01)
[2018-05-28 02:00] VITALS: BP 101/52; PULSE 75; RESP 16
[2018-05-28 08:05] VITALS: BP 114/59; PULSE 68; RESP 16
[2018-05-28] MEDS: ENOXAPARIN 40 MG/0.4 ML SYG SC SCH (08:14)
[2018-05-28] MEDS: INSULIN ASPART [NOVOLOG] 3 ML PEN SC SCH ×5 (08:15→20:17)
[2018-05-28] MEDS: metFORMIN 500 MG TAB PO SCH ×2 (08:17→17:31)
[2018-05-28] MEDS: AMOXICILLIN/CLAV 500 MG TAB PO SCH ×2 (08:18→20:17)
[2018-05-28] MEDS: FLUTICASONE/VILANTEROL 100-25 INH SCH (08:18)
[2018-05-28] MEDS: predniSONE 20 MG TAB PO SCH (08:18)
[2018-05-28] MEDS: GUAIFENESIN LA 600 MG TABSR PO SCH ×2 (08:18→20:17)
[2018-05-28] MEDS: FLUTICASONE 0.05% 16 GM NAS SPRAY NASAL SCH ×2 (08:18→20:17)
[2018-05-28] MEDS: FAMOTIDINE 20 MG TAB PO SCH ×2 (08:18→20:17)
[2018-05-28] MEDS: ALBUTEROL/IPRATROPIUM (NEB) 3 ML AMP HHN SCH ×3 (08:37→20:59)
--- NOTE | 2018-05-28 08:50 | PN ---
Date/Time of Note Date/Time of Note DATE: 05/28/18 TIME: 08:50 Assessment/Plan VTE Prophylaxis Risk score (from Nsg)>0 risk: 2 SCD applied (from Nsg): Yes Pharmacological prophylaxis: LMWH Lines/Catheters IV Catheter Type (from Nrsg): Saline Lock Urinary Cath still in place: No Assessment/Plan Assessment/Plan 1. Acute asthma exacerbation - still with wheezing and told she desaturated overnight but was not documented. Asked nursing to document any desaturations since will need to qualify for home O2 - wheezing still present but improving - Pulmonology consultation appreciated and will need to follow up as outpatient for PFT and allergy testing - Steroid taper - continue current bronchodilators - o2 as needed - added Montelukast qhs 2. DM - A1c noted - will continue ISS and accuchecks 3. Lactic acidosis- resolved - fluids given 4. Disposition - Discussed with nursing need to document any desaturations so can qualify patient for home O2 - Once able to obtain home O2, will d/c home with steroid taper Result Diagram: 05/25/18 0537 05/25/18 0538 Results 24hrs Laboratory Tests Test 05/27/18 12:11 05/27/18 17:17 05/27/18 20:59 05/28/18 07:45 Bedside Glucose 269 H 380 H 115 246 H Subjective 24 Hr Interval Summary Free Text/Dictation Patient states she feeling better but told overnight that her saturations dropped to 76% but was not documented. Exam/Review of Systems Exam Vitals Vital Signs Date Temp Pulse Resp B/P (MAP) Pulse Ox O2 O2 Flow FiO2 Time Delivery Rate 05/28/18 98.2 68 16 114/59 99 08:05 (77) 05/28/18 2.0 04:41 05/28/18 Room Air 02:00 05/27/18 21 20:30 Intake and Output 05/27/18 05/27/18 05/28/18 1515:00 23:00 07:00 IntakeIntake Total 1200 ml BalanceBalance 1200 ml Exam General: Patient is a pleasant female, currently lying in bed, no acute distress Neck: Supple Chest: Nontender Lungs: Diffuse expiratory wheezing appreciated, No crackles Heart: Normal S1-S2, Regular rate and rhythm. no murmurs Abdomen: Soft , nontender, nondistended , bowel sounds are present. No guarding no rebound tenderness Extremities: Normal to inspection, no edema no cyanosis Results Results 24hrs Laboratory Tests Test 05/27/18 12:11 05/27/18 17:17 05/27/18 20:59 05/28/18 07:45 Bedside Glucose 269 H 380 H 115 246 H Medications Medication Current Medications Fluticasone/ Vilanterol (Breo Ellipta 100-25 Mcg Inh) 1 inh DAILY INH Last administered on 05/28/18at 08:18; Admin Dose 1 INH; Start 05/25/18 at 09:00 Albuterol (Proventil 0.083% (Neb)) 2.5 mg Q2H RESP THERAPY PRN HHN SHORTNESS OF BREATH; Start 05/24/18 at 17:00 Albuterol/ Ipratropium (Duoneb) 3 ml Q6HWA RESP THERAPY HHN Last administered on 05/28/18at 08:37; Admin Dose 3 ML; Start 05/24/18 at 20:00 IV Flush (NS 3 ml) 3 ml PER PROTOCOL IV ; Start 05/24/18 at 17:00 Ondansetron HCl (Zofran Inj) 4 mg Q6H PRN IV NAUSEA/VOMITING; Start 05/24/18 at 17:00 Acetaminophen (Tylenol Tab) 650 mg Q6H PRN PO .PAIN 1-3 OR TEMP Last administered on 05/25/18at 08:05; Admin Dose 650 MG; Start 05/24/18 at 17:00 Docusate Sodium (Colace) 100 mg Q12H PRN PO .CONSTIPATION; Start 05/24/18 at 17:00 Magnesium Hydroxide (Milk Of Mag) 30 ml DAILY PRN PO .CONSTIPATION; Start 05/24/18 at 17:00 Famotidine (Pepcid) 20 mg Q12 PO Last administered on 05/28/18at 08:18; Admin Dose 20 MG; Start 05/24/18 at 21:00 Enoxaparin Sodium (Lovenox) 40 mg DAILY SC Last administered on 05/28/18at 08:14; Admin Dose 40 MG; Start 05/25/18 at 09:00 Miscellaneous Information 1 ea NOTE XX ; Start 05/24/18 at 17:30 Glucose (Glutose) 15 gm Q15M PRN PO DECREASED GLUCOSE; Start 05/24/18 at 17:30 Glucose (Glutose) 22.5 gm Q15M PRN PO DECREASED GLUCOSE; Start 05/24/18 at 17:30 Dextrose (D50w Syringe) 25 ml Q15M PRN IV DECREASED GLUCOSE; Start 05/24/18 at 17:30 Dextrose (D50w Syringe) 50 ml Q15M PRN IV DECREASED GLUCOSE; Start 05/24/18 at 17:30 Glucagon (Glucagen) 1 mg Q15M PRN IM DECREASED GLUCOSE; Start 05/24/18 at 17:30 Glucose (Glutose) 15 gm Q15M PRN BUCCAL DECREASED GLUCOSE; Start 05/24/18 at 17:30 Insulin Aspart (Novolog Insulin Pen) NOVOLOG *MODERATE* ALGORITHM WITH MEALS BEDTIME SC Last administered on 05/28/18 08:15; Admin Dose 6 UNIT; Start 05/24/18 at 21:00 Metformin HCl (Glucophage) 1,000 mg WITH BREAKFAST DINNE PO Last administered on 05/28/18 08:17; Admin Dose 1,000 MG; Start 05/25/18 at 09:30 Guaifenesin (Mucinex) 600 mg BID PO Last administered on 05/28/18 08:18; Admin Dose 600 MG; Start 05/26/18 at 21:00 Fluticasone Propionate (Flonase 0.05% Nasal) 1 spray BID NASAL Last adm inistered on 05/28/18 08:18; Admin Dose 1 SPRAY; Start 05/26/18 at 21:00 Montelukast Sodium (Singulair) 10 mg HS PO Last administered on 05/27/18 21:01; Admin Dose 10 MG; Start 05/26/18 at 21:00 Prednisone (Prednisone) 60 mg DAILY PO Last administered on 05/28/18 08:18; Admin Dose 60 MG; Start 05/27/18 at 09:00 Amoxicillin/ Clavulanate Potassium (Augmentin) 500 mg BID PO Last administered on 05/28/18 08:18; Admin Dose 500 MG; Start 05/26/18 at 21:00 CAROLA NICHOLE MD May 28, 2018 08:50
[2018-05-28] MEDS ORDERED: INSULIN ASPART [NOVOLOG] 3 ML PEN SC ONE (12:30)
--- NOTE | 2018-05-28 12:48 | CONS ---
Consult Date/Type/Reason Admit Date/Time May 24, 2018 at 15:53 Initial Consult Date Type of Consult Pulmonary Date/Time of Note DATE: 05/28/18 TIME: 12:43 Subjective Better this morning, desaturation overnight, requiring o2. On room air today. Objective Vital Signs Date Temp Pulse Resp B/P (MAP) Pulse Ox O2 O2 Flow FiO2 Time Delivery Rate 05/28/18 90 18 94 21 08:47 05/28/18 98.2 114/59 08:05 (77) 05/28/18 2.0 04:41 05/28/18 Room Air 02:00 Intake and Output 05/27/18 05/27/18 05/28/18 1515:00 23:00 07:00 IntakeIntake Total 1200 ml BalanceBalance 1200 ml Exam PHYSICAL EXAMINATION: GENERAL: Well-nourished, well-developed lady, comfortable at rest, in no acute distress. VITAL SIGNS: NECK: Supple. No JVD or lymphadenopathy. CARDIAC: S1, S2. No added sounds or murmur. CHEST: Minimal wheezing. ABDOMEN: Soft, nontender. No guarding or rebound. EXTREMITIES: No cyanosis, clubbing or edema. NEUROLOGIC: Grossly intact. No focal deficits. Vent Setting Fraction of Inspired Oxygen pe: 21 Results/Medications Result Diagram: 05/25/18 0537 05/25/18 0538 Results 24 hrs Laboratory Tests Test 05/27/18 17:17 05/27/18 20:59 05/28/18 07:45 05/28/18 11:59 Bedside Glucose 380 H 115 246 H 374 H Medications Current Medications Fluticasone/ Vilanterol (Breo Ellipta 100-25 Mcg Inh) 1 inh DAILY INH Last administered on 05/28/18at 08:18; Admin Dose 1 INH; Start 05/25/18 at 09:00 Albuterol (Proventil 0.083% (Neb)) 2.5 mg Q2H RESP THERAPY PRN HHN SHORTNESS OF BREATH; Start 05/24/18 at 17:00 Albuterol/ Ipratropium (Duoneb) 3 ml Q6HWA RESP THERAPY HHN Last administered on 05/28/18at 08:37; Admin Dose 3 ML; Start 05/24/18 at 20:00 IV Flush (NS 3 ml) 3 ml PER PROTOCOL IV ; Start 05/24/18 at 17:00 Ondansetron HCl (Zofran Inj) 4 mg Q6H PRN IV NAUSEA/VOMITING; Start 05/24/18 at 17:00 Acetaminophen (Tylenol Tab) 650 mg Q6H PRN PO .PAIN 1-3 OR TEMP Last administered on 05/25/18at 08:05; Admin Dose 650 MG; Start 05/24/18 at 17:00 Docusate Sodium (Colace) 100 mg Q12H PRN PO .CONSTIPATION; Start 05/24/18 at 17:00 Magnesium Hydroxide (Milk Of Mag) 30 ml DAILY PRN PO .CONSTIPATION; Start 05/24/18 at 17:00 Famotidine (Pepcid) 20 mg Q12 PO Last administered on 05/28/18at 08:18; Admin Dose 20 MG; Start 05/24/18 at 21:00 Enoxaparin Sodium (Lovenox) 40 mg DAILY SC Last administered on 05/28/18at 08:14; Admin Dose 40 MG; Start 05/25/18 at 09:00 Miscellaneous Information 1 ea NOTE XX ; Start 05/24/18 at 17:30 Glucose (Glutose) 15 gm Q15M PRN PO DECREASED GLUCOSE; Start 05/24/18 at 17:30 Glucose (Glutose) 22.5 gm Q15M PRN PO DECREASED GLUCOSE; Start 05/24/18 at 17:30 Dextrose (D50w Syringe) 25 ml Q15M PRN IV DECREASED GLUCOSE; Start 05/24/18 at 17:30 Dextrose (D50w Syringe) 50 ml Q15M PRN IV DECREASED GLUCOSE; Start 05/24/18 at 17:30 Glucagon (Glucagen) 1 mg Q15M PRN IM DECREASED GLUCOSE; Start 05/24/18 at 17:30 Glucose (Glutose) 15 gm Q15M PRN BUCCAL DECREASED GLUCOSE; Start 05/24/18 at 17:30 Insulin Aspart (Novolog Insulin Pen) NOVOLOG *MODERATE* ALGORITHM WITH MEALS BEDTIME SC Last administered on 05/28/18at 12:16; Admin Dose 12 UNIT; Start 05/24/18 at 21:00 Metformin HCl (Glucophage) 1,000 mg WITH BREAKFAST DINNE PO Last administered on 05/28/18at 08:17; Admin Dose 1,000 MG; Start 05/25/18 at 09:30 Guaifenesin (Mucinex) 600 mg BID PO Last administered on 05/28/18 08:18; Admin Dose 600 MG; Start 05/26/18 at 21:00 Fluticasone Propionate (Flonase 0.05% Nasal) 1 spray BID NASAL Last administered on 05/28/18 08:18; Admin Dose 1 SPRAY; Start 05/26/18 at 21:00 Montelukast Sodium (Singulair) 10 mg HS PO Last administered on 05/27/18 21:01; Admin Dose 10 MG; Start 05/26/18 at 21:00 Prednisone (Prednisone) 60 mg DAILY PO Last administered on 05/28/18 08:18; Admin Dose 60 MG; Start 05/27/18 at 09:00 Amoxicillin/ Clavulanate Potassium (Augmentin) 500 mg BID PO Last administered on 05/28/18 08:18; Admin Dose 500 MG; Start 05/26/18 at 21:00 Assessment/Plan Hospital Course (Demo Recall) IMPRESSION 1. Acute exacerbation of asthma likely moderate persistent disease. Improving. Plan: 1. Steroid taper. 2. Bronchodilators. 3. Outpatient long-acting beta agonist and inhaled corticosteroid. 4. Outpatient pulmonary function testing also and workup of possible allergies. Discussed with staff encouraged to ambulate. dc planning nocturnal o2 f/u with me in office for pfts and nocturnal oximetry. SAMPSON BECKFORD MD, [facility] May 28, 2018 12:48
[2018-05-28 14:35] VITALS: BP 124/66; PULSE 87; RESP 16
[2018-05-28] MEDS: INSULIN GLARGINE [LANTus] (100 UNITS/ML) SYG SC SCH (20:16)
[2018-05-28] MEDS: MONTELUKAST 10 MG TAB PO SCH (20:17)
[2018-05-28 20:20] VITALS: BP 116/63; PULSE 83; RESP 18
[2018-05-28 23:05] VITALS: PULSE 85
[2018-05-29 02:37] VITALS: BP 111/64; PULSE 72; RESP 18
[2018-05-29] MEDS: metFORMIN 500 MG TAB PO SCH ×2 (08:11→17:37)
[2018-05-29] MEDS: INSULIN ASPART [NOVOLOG] 3 ML PEN SC SCH ×7 (08:13→20:19)
[2018-05-29 08:25] VITALS: BP 112/57; PULSE 70; RESP 18
[2018-05-29] MEDS: ACETAMINOPHEN 325 MG TAB PO PRN (08:40)
[2018-05-29] MEDS: FAMOTIDINE 20 MG TAB PO SCH ×2 (08:40→20:18)
[2018-05-29] MEDS: predniSONE 20 MG TAB PO SCH (08:41)
[2018-05-29] MEDS: GUAIFENESIN LA 600 MG TABSR PO SCH ×2 (08:41→20:18)
[2018-05-29] MEDS: AMOXICILLIN/CLAV 500 MG TAB PO SCH ×2 (08:41→20:18)
[2018-05-29] MEDS: ENOXAPARIN 40 MG/0.4 ML SYG SC SCH (08:42)
[2018-05-29] MEDS: FLUTICASONE/VILANTEROL 100-25 INH SCH (08:42)
[2018-05-29] MEDS: FLUTICASONE 0.05% 16 GM NAS SPRAY NASAL SCH ×2 (08:42→20:18)
[2018-05-29] MEDS ORDERED: FLUTICASONE/VILANTEROL 100-25 INH SCH (11:00)
--- NOTE | 2018-05-29 11:05 | PN ---
Date/Time of Note Date/Time of Note DATE: 05/29/18 TIME: 11:05 Objective Vitals Vital Signs Date Temp Pulse Resp B/P (MAP) Pulse Ox O2 O2 Flow FiO2 Time Delivery Rate 05/29/18 98.1 70 18 112/57 96 Room Air 08:25 (75) 05/28/18 21 21:01 05/28/18 2.0 04:41 Intake and Output 05/28/18 05/28/18 05/29/18 1515:00 23:00 07:00 IntakeIntake Total 1500 ml 1300 ml BalanceBalance 1500 ml 1300 ml Results Result Diagram: 05/25/1837 05/25/18 05 Medications Medications Current Medications Fluticasone/ Vilanterol (Breo Ellipta 100-25 Mcg Inh) 1 inh DAILY INH Last administered on 05/29/18at 08:42; Admin Dose 1 INH; Start 05/25/18 at 09:00 Albuterol (Proventil 0.083% (Neb)) 2.5 mg Q2H RESP THERAPY PRN HHN SHORTNESS OF BREATH; Start 05/24/18 at 17:00 IV Flush (NS 3 ml) 3 ml PER PROTOCOL IV ; Start 05/24/18 at 17:00 Ondansetron HCl (Zofran Inj) 4 mg Q6H PRN IV NAUSEA/VOMITING; Start 05/24/18 at 17:00 Acetaminophen (Tylenol Tab) 650 mg Q6H PRN PO .PAIN 1-3 OR TEMP Last administered on 05/29/18at 08:40; Admin Dose 650 MG; Start 05/24/18 at 17:00 Docusate Sodium (Colace) 100 mg Q12H PRN PO .CONSTIPATION; Start 05/24/18 at 17:00 Magnesium Hydroxide (Milk Of Mag) 30 ml DAILY PRN PO .CONSTIPATION; Start 05/24/18 at 17:00 Famotidine (Pepcid) 20 mg Q12 PO Last administered on 05/29/18at 08:40; Admin Dose 20 MG; Start 05/24/18 at 21:00 Enoxaparin Sodium (Lovenox) 40 mg DAILY SC Last administered on 05/29/18at 08:42; Admin Dose 40 MG; Start 05/25/18 at 09:00 Miscellaneous Information 1 ea NOTE XX ; Start 05/24/18 at 17:30 Glucose (Glutose) 15 gm Q15M PRN PO DECREASED GLUCOSE; Start 05/24/18 at 17:30 Glucose (Glutose) 22.5 gm Q15M PRN PO DECREASED GLUCOSE; Start 05/24/18 at 17:30 Dextrose (D50w Syringe) 25 ml Q15M PRN IV DECREASED GLUCOSE; Start 05/24/18 at 17:30 Dextrose (D50w Syringe) 50 ml Q15M PRN IV DECREASED GLUCOSE; Start 05/24/18 at 17:30 Glucagon (Glucagen) 1 mg Q15M PRN IM DECREASED GLUCOSE; Start 05/24/18 at 17:30 Glucose (Glutose) 15 gm Q15M PRN BUCCAL DECREASED GLUCOSE; Start 05/24/18 at 17:30 Insulin Aspart (Novolog Insulin Pen) NOVOLOG *MODERATE* ALGORITHM WITH MEALS BEDTIME SC Last administered on 05/29/18 08:13; Admin Dose 4 UNIT; Start 05/24/18 at 21:00 Metformin HCl (Glucophage) 1,000 mg WITH BREAKFAST DINNE PO Last administered on 05/29/18 08:11; Admin Dose 1,000 MG; Start 05/25/18 at 09:30 Guaifenesin (Mucinex) 600 mg BID PO Last administered on 05/29/18 08:41; Admin Dose 600 MG; Start 05/26/18 at 21:00 Fluticasone Propionate (Flonase 0.05% Nasal) 1 spray BID NASAL Last administered on 05/29/18 08:42; Admin Dose 1 SPRAY; Start 05/26/18 at 21:00 Montelukast Sodium (Singulair) 10 mg HS PO Last administered on 05/28/18 20:17; Admin Dose 10 MG; Start 05/26/18 at 21:00 Amoxicillin/ Clavulanate Potassium (Augmentin) 500 mg BID PO Last administered on 05/29/18 08:41; Admin Dose 500 MG; Start 05/26/18 at 21:00 Insulin Glargine (Lantus) 15 units DAILY@2000 SC Last administered on 05/28/18 20:16; Admin Dose 15 UNITS; Start 05/28/18 at 20:00 Insulin Aspart (Novolog Insulin Pen) 5 unit WITH MEALS SC Last administered on 2/25/19at 08:13; Admin Dose 5 UNIT; Start 05/28/18 at 17:35 Prednisone (Prednisone) 40 mg DAILY PO ; Start 05/30/18 at 09:00 VTE Prophylaxis Risk score (from Ns)>0 risk: 1 SCD applied (from Ns): Yes Lines/Catheters IV Catheter Type: Spangler in Place: No Assessment/Plan Hospital Course Subjective Patient breathing much better, off O2 Objective Physical exam General: Patient is laying in bed and answers questions appropriately Mentation: Patient is alert and oriented 4, Head: Normocephalic atraumatic Eyes: EOMI, pupils reactive to light Neck: Supple, nontender, midline Respiratory: Very mild wheezing to auscultation bilaterally Cardiovascular: regular rate, no obvious murmurs Gastrointestinal: non-tender to palpation, bowel sounds heard. Neurological: Moves all extremities spontaneously Skin: No new skin lesions Assessment/Plan 1. Acute asthma exacerbation - wheezing sig improved - wheezing still present but improving - Pulmonology consultation appreciated and will need to follow up as outpatient for PFT and allergy testing - Steroid taper - stop scheduled duoneb in order to simulate a home environment - o2 as needed - added Montelukast qhs 2. DM - A1c noted - will continue ISS and accuchecks 3. Lactic acidosis- resolved - fluids given 4. Disposition - if stable on home o2 and no duonebs needed by tomorrow, YOAN PEREZ May 29, 2018 11:05
[2018-05-29 14:16] VITALS: BP 114/60; PULSE 84; RESP 18
--- NOTE | 2018-05-29 14:22 | CONS ---
Consult Date/Type/Reason Admit Date/Time May 24, 2018 at 15:53 Initial Consult Date Type of Consult Pulmonary Date/Time of Note DATE: 05/29/18 TIME: 14:21 Subjective Mild wheezing, overall improved. Objective Vital Signs Date Temp Pulse Resp B/P (MAP) Pulse Ox O2 O2 Flow FiO2 Time Delivery Rate 05/29/18 98.2 84 18 114/60 96 Room Air 14:16 (78) 05/28/18 21:01 05/28/18 2.0 04:41 Intake and Output 05/28/18 05/28/18 05/29/18 1515:00 23:00 07:00 IntakeIntake Total 1500 ml 1300 ml BalanceBalance 1500 ml 1300 ml Exam PHYSICAL EXAMINATION: GENERAL: Well-nourished, well-developed lady, comfortable at rest, in no acute distress. VITAL SIGNS: NECK: Supple. No JVD or lymphadenopathy. CARDIAC: S1, S2. No added sounds or murmur. CHEST: Minimal wheezing. ABDOMEN: Soft, nontender. No guarding or rebound. EXTREMITIES: No cyanosis, clubbing or edema. NEUROLOGIC: Grossly intact. No focal deficits. Vent Setting Fraction of Inspired Oxygen pe: 21 Results/Medications Result Diagram: 05/25/18 0537 05/25/18 0538 Results 24 hrs Laboratory Tests Test 05/28/18 17:17 05/28/18 20:14 05/29/18 08:09 05/29/18 11:58 Bedside Glucose 320 H 140 185 194 Medications Current Medications Fluticasone/ Vilanterol (Breo Ellipta 100-25 Mcg Inh) 1 inh DAILY INH Last administered on 05/29/18at 08:42; Admin Dose 1 INH; Start 05/25/18 at 09:00 Albuterol (Proventil 0.083% (Neb)) 2.5 mg Q2H RESP THERAPY PRN HHN SHORTNESS OF BREATH; Start 05/24/18 at 17:00 IV Flush (NS 3 ml) 3 ml PER PROTOCOL IV ; Start 05/24/18 at 17:00 Ondansetron HCl (Zofran Inj) 4 mg Q6H PRN IV NAUSEA/VOMITING; Start 05/24/18 at 17:00 Acetaminophen (Tylenol Tab) 650 mg Q6H PRN PO .PAIN 1-3 OR TEMP Last administered on 05/29/18 08:40; Admin Dose 650 MG; Start 05/24/18 at 17:00 Docusate Sodium (Colace) 100 mg Q12H PRN PO .CONSTIPATION; Start 05/24/18 at 17:00 Magnesium Hydroxide (Milk Of Mag) 30 ml DAILY PRN PO .CONSTIPATION; Start 05/24/18 at 17:00 Famotidine (Pepcid) 20 mg Q12 PO Last administered on 05/29/18 08:40; Admin Dose 20 MG; Start 05/24/18 at 21:00 Enoxaparin Sodium (Lovenox) 40 mg DAILY SC Last administered on 05/29/18 08:4 2; Admin Dose 40 MG; Start 05/25/18 at 09:00 Miscellaneous Information 1 ea NOTE XX ; Start 05/24/18 at 17:30 Glucose (Glutose) 15 gm Q15M PRN PO DECREASED GLUCOSE; Start 05/24/18 at 17:30 Glucose (Glutose) 22.5 gm Q15M PRN PO DECREASED GLUCOSE; Start 05/24/18 at 17:30 Dextrose (D50w Syringe) 25 ml Q15M PRN IV DECREASED GLUCOSE; Start 05/24/18 at 17:30 Dextrose (D50w Syringe) 50 ml Q15M PRN IV DECREASED GLUCOSE; Start 05/24/18 at 17:30 Glucagon (Glucagen) 1 mg Q15M PRN IM DECREASED GLUCOSE; Start 05/24/18 at 17:30 Glucose (Glutose) 15 gm Q15M PRN BUCCAL DECREASED GLUCOSE; Start 05/24/18 at 17:30 Insulin Aspart (Novolog Insulin Pen) NOVOLOG *MODERATE* ALGORITHM WITH MEALS BEDTIME SC Last administered on 05/29/18 12:00; Admin Dose 4 UNIT; Start 05/24/18 at 21:00 Metformin HCl (Glucophage) 1,000 mg WITH BREAKFAST DINNE PO Last administered on 05/29/18 08:11; Admin Dose 1,000 MG; Start 05/25/18 at 09:30 Guaifenesin (Mucinex) 600 mg BID PO Last administered on 05/29/18 08:41; Admin Dose 600 MG; Start 05/26/18 at 21:00 Fluticasone Propionate (Flonase 0.05% Nasal) 1 spray BID NASAL Last administered on 05/29/18 08:42; Admin Dose 1 SPRAY; Start 05/26/18 at 21:00 Montelukast Sodium (Singulair) 10 mg HS PO Last administered on 05/28/18 20:17; Admin Dose 10 MG; Start 05/26/18 at 21:00 Amoxicillin/ Clavulanate Potassium (Augmentin) 500 mg BID PO Last administered on 05/29/18 08:41; Admin Dose 500 MG; Start 05/26/18 at 21:00 Insulin Glargine (Lantus) 15 units DAILY@2000 SC Last administered on 05/28/18 20:16; Admin Dose 15 UNITS; Start 05/28/18 at 20:00 Insulin Aspart (Novolog Insulin Pen) 5 unit WITH MEALS SC Last administered on 05/29/18 12:01; Admin Dose 5 UNIT; Start 05/28/18 at 17:35 Prednisone (Prednisone) 40 mg DAILY PO ; Start 05/30/18 at 09:00 Assessment/Plan Hospital Course (Demo Recall) IMPRESSION 1. Acute exacerbation of asthma likely moderate persistent disease. Improving. Plan: 1. Steroid taper. 2. Bronchodilators. 3. Outpatient long-acting beta agonist and inhaled corticosteroid. 4. Outpatient pulmonary function testing also and workup of possible allergies. Discussed with staff encouraged to ambulate. dc planning f/u with me in office for pfts and nocturnal oximetry. SAMPSON BECKFORD MD, FCCP May 29, 2018 14:22
[2018-05-29 19:35] VITALS: BP 128/66; PULSE 84; RESP 18
[2018-05-29] MEDS: MONTELUKAST 10 MG TAB PO SCH (20:18)
[2018-05-29] MEDS: INSULIN GLARGINE [LANTus] (100 UNITS/ML) SYG SC SCH (20:19)
[2018-05-29 23:09] VITALS: PULSE 66; RESP 16
[2018-05-30 02:00] VITALS: BP 113/65; PULSE 79; RESP 18
[2018-05-30 08:01] VITALS: BP 129/60; PULSE 75; RESP 16
[2018-05-30] MEDS: GUAIFENESIN LA 600 MG TABSR PO SCH (08:05)
[2018-05-30] MEDS: AMOXICILLIN/CLAV 500 MG TAB PO SCH (08:06)
[2018-05-30] MEDS: metFORMIN 500 MG TAB PO SCH (08:06)
[2018-05-30] MEDS: FLUTICASONE 0.05% 16 GM NAS SPRAY NASAL SCH (08:06)
[2018-05-30] MEDS: FAMOTIDINE 20 MG TAB PO SCH (08:07)
[2018-05-30] MEDS: FLUTICASONE/VILANTEROL 100-25 INH SCH (08:07)
[2018-05-30] MEDS: INSULIN ASPART [NOVOLOG] 3 ML PEN SC SCH ×4 (08:09→12:06)
[2018-05-30] MEDS: ENOXAPARIN 40 MG/0.4 ML SYG SC SCH (08:11)
[2018-05-30] MEDS ORDERED: predniSONE 20 MG TAB PO SCH (09:00)
[2018-05-30 14:11] VITALS: BP 116/61; PULSE 80; RESP 18
[2018-05-30] MEDS ORDERED: MONT10TA24 PO (14:36)
[2018-05-30] MEDS ORDERED: AMOX1TAB9 PO (14:36)
[2018-05-30] MEDS ORDERED: MED4DP PO (14:36)
--- NOTE | 2018-05-30 14:41 | DS ---
Date/Time of Note Date/Time of Note DATE: 05/30/18 TIME: 14:41 Discharge Summary Admission/Discharge Info Admit Date/Time May 24, 2018 at 15:53 Discharge Date/Time Patient Condition: Stable Hospital Course Patient is a female with past medical history significant for asthma, diabetes mellitus who presents to [facility] for shortness of breath and diagnosed with acute asthma exacerbation. Patient had multiple interventions including antibiotics, breathing treatments, and steroids and continued to improve. On the day of discharge patient is on room air and feeling well and would like to be discharged. Patient is to continue her home inhalers including Advair as well as albuterol but will also be leaving with a new prescription for Singulair as well as a small tapering steroid dose, and a short course of abx to finish her course that was started inpatient. Patient will follow up with her primary care provider to adjust her insulin levels and her diabetic medications as they are suboptimal, patient wishes to not change them at this time. Patient will be discharged safely and on room air and patient is feeling well. Discharge diagnosis Acute asthma exacerbation Diabetes mellitus Lactic acidosis, resolved Home Meds Active Scripts Methylprednisolone* (Medrol* DOSE PACK) 4 Mg/Dose-Pack Tab.ds.pk, 4 MG PO . DIRECTED, #1 PACKET Prov:YOAN MENA 05/30/18 Montelukast Sodium* (Montelukast Sodium*) 10 Mg Tablet, 10 MG PO HS for 30 Days, #30 TAB 1 Refill Prov:YOAN MENA 05/30/18 Amoxicillin/Potassium Clav (Amox-Clav 500-125 mg Tablet) 500-125 mg Tab, 500 MG PO BID for 3 Days, #6 TAB Prov:YOAN MENA 05/30/18 Prednisone* (Prednisone*) 10 Mg Tab, 10 MG PO DAILY for 11 Days, #26 TAB 40mg for 2 days then 30mg for 3 days then 20mg for 3 days then 10mg for 3 days then stop Prov:CAROLA NICHOLE MD 03/31/18 Guaifenesin (Guaifenesin) 600 Mg Tablet.sa, 600 MG PO BID PRN for COUGH for 7 Days, #14 TAB Prov:CAROLA NICHOLE MD 03/31/18 Azithromycin* (Azithromycin*) 250 Mg Tablet, 250 MG PO DAILY for 2 Days, #2 TAB Prov:CAROLA NICHOLE MD 03/31/18 Reported Medications Albuterol Sulfate* (Proair HFA*) 8.5 Gm Hfa.aer.ad, 2 PUFF INH Q4H PRN for WHEEZING AND SOB, #1 INHALER 03/27/18 Salmeterol Xinaf/Fluticasone* (Advair*) 250-50 Diskus Inhaler, 1 INH INHALATION BID, #1 INHALER 03/27/18 Glipizide* (Glipizide*) 10 Mg Tablet, 10 MG PO AC BREAKFAST DINNER, TAB 03/27/18 Metformin Hcl* (Metformin Hcl*) 1,000 Mg Tablet, 1000 MG PO WITH BREAKFAST DINNE, #60 TAB 03/27/18 Primary Care Provider Not On Staff Doctor Time spent on discharge: > 30 minutes Pending Labs Laboratory Tests Test 05/29/18 17:34 05/29/18 20:16 05/30/18 02:06 05/30/18 06:06 Bedside 277 214 150 Glucose mg/dL (70-220) mg/dL (70-220) mg/dL (70-220) White Blood 10.3 Count 10^3/ul (4.8-1 0.8) Red Blood 5.01 Count 10^6/ul (4.20- 5.40) Hemoglobin 12.3 g/dl (12.0-16. 0) Hematocrit 38.0 % (37.0-47.0) Mean 75.8 Corpuscular fl (82.0-101.0 Volume ) Mean 24.6 Corpuscular pg (29.0-33.0) Hemoglobin Mean 32.4 Corpuscular g/dl (32.0-37. Hemoglobin Conc 0) ent Red Cell 14.3 Distribution % (11.5-14.5) Width Platelet Count 267 10^3/UL (140-4 15) Mean Platelet 10.2 Volume fl (7.4-10.4) Immature 0.500 Granulocytes % % (0.001-0.429 ) Neutrophils % 44.6 % (39.0-77.0) Lymphocytes % 44.3 % (15.0-51.0) Monocytes % 7.6 % (0.0-11.0) Eosinophils % 2.9 % (0.0-7.0) Basophils % 0.1 % (0.0-2.0) Nucleated Red 0.0 Blood Cells % /100WBC (0.0-0 .0) Immature 0.050 Granulocytes # 10^3/ul (0.0-0 .031) Neutrophils # 4.6 10^3/ul (1.6-7 .5) Lymphocytes # 4.5 10^3/ul (0.8-2 .9) Monocytes # 0.8 10^3/ul (0.3-0 .9) Eosinophils # 0.3 10^3/ul (0.0-0 .5) Basophils # 0.0 10^3/ul (0.0-0 .1) Nucleated Red 0.0 Blood Cells # 10^3/ul (0.0-0 .0) Sodium Level 138 mmol/L (135-14 4) Potassium 4.0 Level mmol/L (3.5-5. 1) Chloride Level 101 mmol/L (97-110 ) Carbon Dioxide 30 Level mmol/L (21-31) Anion Gap 7 (5-13) Blood Urea 18 Nitrogen mg/dl (7-20) Creatinine 0.59 mg/dl (0.44-1. 00) Est Glomerular > 60 Filtrat mL/min (>60) Rate mL/min Glucose Level 150 mg/dl (70-220) Calcium Level 9.8 mg/dl (8.4-10. 2) Phosphorus 3.8 Level mg/dl (2.5-4.9 ) Magnesium 1.8 Level mg/dl (1.7-2.5 ) Test 05/30/18 07:47 05/30/18 12:03 Bedside 176 283 Glucose mg/dL (70-220) mg/dL (70-220) YOAN MENA May 30, 2018 14:41
--- NOTE | 2018-05-30 14:42 | PDOCDIS ---
Discharge Instructions CONDITION [id number] Patient Condition: [id number] Stable FOLLOW UP/APPOINTMENTS Follow-up Plan Please follow-up with your primary care provider as soon as possible in order to adjust your diabetes mellitus medications as they are not optimal. YOAN MENA May 30, 2018 14:42
--- NOTE | 2018-05-30 15:14 | CONS ---
Consult Date/Type/Reason Admit Date/Time May 24, 2018 at 15:53 Initial Consult Date Type of Consult Pulmonary Date/Time of Note DATE: 05/30/18 TIME: 15:14 Subjective Patient better today. Less shortness of breath. Objective Vital Signs Date Temp Pulse Resp B/P (MAP) Pulse Ox O2 O2 Flow FiO2 Time Delivery Rate 05/30/18 98.3 80 18 116/61 92 14:11 (79) 05/29/18 Room Air 23:09 05/28/18 21 21:01 05/28/18 2.0 04:41 Intake and Output 05/29/18 05/29/18 05/30/18 1515:00 23:00 07:00 IntakeIntake Total 780 ml 360 ml BalanceBalance 780 ml 360 ml Exam PHYSICAL EXAMINATION: GENERAL: Well-nourished, well-developed lady, comfortable at rest, in no acute distress. VITAL SIGNS: NECK: Supple. No JVD or lymphadenopathy. CARDIAC: S1, S2. No added sounds or murmur. CHEST: Minimal wheezing. ABDOMEN: Soft, nontender. No guarding or rebound. EXTREMITIES: No cyanosis, clubbing or edema. NEUROLOGIC: Grossly intact. No focal deficits. Vent Setting Fraction of Inspired Oxygen pe: 21 Results/Medications Result Diagram: 05/30/18 0606 05/30/18 0606 Results 24 hrs Laboratory Tests Test 05/29/18 17:34 05/29/18 20:16 05/30/18 02:06 05/30/18 06:06 Bedside Glucose 277 H 214 150 White Blood Count 10.3 # Red Blood Count 5.01 Hemoglobin 12.3 Hematocrit 38.0 Mean Corpuscular 75.8 L Volume Mean Corpuscular 24.6 L Hemoglobin Mean Corpuscular 32.4 Hemoglobin Concent Red Cell 14.3 Distribution Width Platelet Count 267 Mean Platelet Volume 10.2 Immature 0.500 H Granulocytes % Neutrophils % 44.6 Lymphocytes % 44.3 Monocytes % 7.6 Eosinophils % 2.9 Basophils % 0.1 Nucleated Red Blood 0.0 Cells % Immature 0.050 H Granulocytes # Neutrophils # 4.6 Lymphocytes # 4.5 H Monocytes # 0.8 Eosinophils # 0.3 Basophils # 0.0 Nucleated Red Blood 0.0 Cells # Sodium Level 138 Potassium Level 4.0 Chloride Level 101 Carbon Dioxide Level 30 Anion Gap 7 Blood Urea Nitrogen 18 Creatinine 0.59 Est Glomerular > 60 Filtrat Rate mL/min Glucose Level 150 Calcium Level 9.8 Phosphorus Level 3.8 Magnesium Level 1.8 Test 05/30/18 07:47 05/30/18 12:03 Bedside Glucose 176 283 H Medications Current Medications Fluticasone/ Vilanterol (Breo Ellipta 100-25 Mcg Inh) 1 inh DAILY INH Last administered on 05/30/18at 08:07; Admin Dose 1 INH; Start 05/25/18 at 09:00 Albuterol (Proventil 0.083% (Neb)) 2.5 mg Q2H RESP THERAPY PRN HHN SHORTNESS OF BREATH; Start 05/24/18 at 17:00 IV Flush (NS 3 ml) 3 ml PER PROTOCOL IV ; Start 05/24/18 at 17:00 Ondansetron HCl (Zofran Inj) 4 mg Q6H PRN IV NAUSEA/VOMITING; Start 05/24/18 at 17:00 Acetaminophen (Tylenol Tab) 650 mg Q6H PRN PO .PAIN 1-3 OR TEMP Last administered on 05/29/18at 08:40; Admin Dose 650 MG; Start 05/24/18 at 17:00 Docusate Sodium (Colace) 100 mg Q12H PRN PO .CONSTIPATION; Start 05/24/18 at 17:00 Magnesium Hydroxide (Milk Of Mag) 30 ml DAILY PRN PO .CONSTIPATION; Start 05/24/18 at 17:00 Famotidine (Pepcid) 20 mg Q12 PO Last administered on 05/30/18at 08:07; Admin Dose 20 MG; Start 05/24/18 at 21:00 Enoxaparin Sodium (Lovenox) 40 mg DAILY SC Last administered on 05/30/18at 08:11; Admin Dose 40 MG; Start 05/25/18 at 09:00 Miscellaneous Information 1 ea NOTE XX ; Start 05/24/18 at 17:30 Glucose (Glutose) 15 gm Q15M PRN PO DECREASED GLUCOSE; Start 05/24/18 at 17:30 Glucose (Glutose) 22.5 gm Q15M PRN PO DECREASED GLUCOSE; Start 05/24/18 at 17:30 Dextrose (D50w Syringe) 25 ml Q15M PRN IV DECREASED GLUCOSE; Start 05/24/18 at 17:30 Dextrose (D50w Syringe) 50 ml Q15M PRN IV DECREASED GLUCOSE; Start 05/24/18 at 17:30 Glucagon (Glucagen) 1 mg Q15M PRN IM DECREASED GLUCOSE; Start 05/24/18 at 17:30 Glucose (Glutose) 15 gm Q15M PRN BUCCAL DECREASED GLUCOSE; Start 05/24/18 at 17:30 Insulin Aspart (Novolog Insulin Pen) NOVOLOG *MODERATE* ALGORITHM WITH MEALS BEDTIME SC Last administered on 05/30/18 12:05; Admin Dose 8 UNIT; Start 05/24/18 at 21:00 Metformin HCl (Glucophage) 1,000 mg WITH BREAKFAST DINNE PO Last administered on 05/30/18 08:06; Admin Dose 1,000 MG; Start 05/25/18 at 09:30 Guaifenesin (Mucinex) 600 mg BID PO Last administered on 05/30/18 08:05; Admin Dose 600 MG; Start 05/26/18 at 21:00 Fluticasone Propionate (Flonase 0.05% Nasal) 1 spray BID NASAL Last administered on 05/30/18 08:06; Admin Dose 1 SPRAY; Start 05/26/18 at 21:00 Montelukast Sodium (Singulair) 10 mg HS PO Last administered on 05/29/18 20:18; Admin Dose 10 MG; Start 05/26/18 at 21:00 Amoxicillin/ Clavulanate Potassium (Augmentin) 500 mg BID PO Last administered on 05/30/18 08:06; Admin Dose 500 MG; Start 05/26/18 at 21:00 Insulin Glargine (Lantus) 15 units DAILY@2000 SC Last administered on 05/29/18 20:19; Admin Dose 15 UNITS; Start 05/28/18 at 20:00 Insulin Aspart (Novolog Insulin Pen) 5 unit WITH MEALS SC Last administered on 05/30/18 12:06; Admin Dose 5 UNIT; Start 05/28/18 at 17:35 Prednisone (Prednisone) 40 mg DAILY PO Last administered on 05/30/18 08:06; Admin Dose 40 MG; Start 05/30/18 at 09:00 Assessment/Plan Hospital Course (Demo Recall) IMPRESSION 1. Acute exacerbation of asthma likely moderate persistent disease. Improving. Plan: 1. Steroid taper. 2. Bronchodilators. 3. Outpatient long-acting beta agonist and inhaled corticosteroid. 4. Outpatient pulmonary function testing also and workup of possible allergies. DC planning. SAMPSON BECKFORD MD, [facility] May 30, 2018 15:14
== END 2018-05-30 16:13 | disposition home or self-care (01) | DRG 202 ==
LOC: E/R 13:25 → PP2 15:53
PROVIDERS: ADMIT Internal Medicine; ATTEND Internal Medicine
PROC: 3E0F7GC Introduction of Other Therapeutic Substance into Respiratory Tract, Via Natural or Artificial Opening (ICD-10-PCS; principal; 2018-05-24)
DX: J45.41 Moderate persistent asthma with (acute) exacerbation (principal); E87.2 Acidosis; J96.01 Acute respiratory failure with hypoxia; E11.8 Type 2 diabetes mellitus with unspecified complications
CPT/HCPCS: 36415; 71045; 80048; 80053; 81003; 82962; 83036; 83605; 83735; 84100; 84443; 84484; 85025; 85610; 85730; 87040; 87086; 87400; 93005; 94640; 94644; 94645; 94664; 96374; 96375; J0456; J0696; J1100; J1650; J1815; J1817; J2920; J3475; J7030; J7512